=== PATIENT | male | born 1975 | race Caucasian/White ===

== ENCOUNTER 2017-05-21 15:56 | Emergency (ER) | payer BC ==
--- NOTE | 2017-05-21 16:38 | EDM.PDOC ---
ED HPI GENERAL MEDICAL PROBLEM - General Chief Complaint: Abdominal Pain Stated Complaint: GAL BLADDER PAIN?? [phone] Time Seen by Provider: 05/21/17 16:38 Source of Information: Reports: Patient, RN, RN Notes Reviewed History Limitations: Reports: No Limitations - History of Present Illness INITIAL COMMENTS - FREE TEXT/NARRATIVE: Patient complains of onset of right upper abdominal pain after noon today. Patient last ate at about 8 a.m. and had a breakfast pizza and states that when lunch time approached he had no appetite and felt nauseated. Denies any vomiting or fever. He has had similar pain in the past but never this severe and never lasted this long. Denies any radiating pain. Denies any diarrhea, constipation or urinary symptoms. Onset: Today Location: Reports: Abdomen Quality: Reports: Ache Severity: Moderate Improves with: Reports: None Worsens with: Reports: None Associated Symptoms: Reports: No Other Symptoms Abdomen Pain Score (Numeric/FACES): 6 - Related Data Allergies Allergy/AdvReac Type Severity Reaction Status Date / Time cephalexin monohydrate Allergy Blurred Verified 05/21/17 16:26 [From Keflex] [facility] Meds: Home Meds Omeprazole [Prilosec] 20 mg PO DAILY 07/30/14 [History] Ibuprofen 800 mg PO ASDIRECTED PRN 08/07/14 [History] Aspirin 81 mg PO DAILY 05/01/15 [History] Metoprolol Succinate [Toprol XL] 75 mg PO DAILY 10/19/16 [History] Past Medical History Cardiovascular History: Reports: Hypertension, Other (See Below) Other Cardiovascular History: dilated cardiomyopathy Respiratory History: Reports: Sleep Apnea, SOB Gastrointestinal History: Reports: GERD Genitourinary History: Reports: Renal Calculus Other Genitourinary History: kidney stones Musculoskeletal History: Reports: Fracture (clavicle) Other Musculoskeletal History: fx clavicle Neurological History: Reports: None Psychiatric History: Reports: None Endocrine/Metabolic History: Reports: Obesity/BMI 30+ Hematologic History: Reports: None Immunologic History: Reports: None Oncologic (Cancer) History: Reports: None Dermatologic History: Reports: None - Infectious Disease History Infectious Disease History: Reports: None - Past Surgical History HEENT Surgical History: Reports: Adenoidectomy, Tonsillectomy Social & Family History - Family History Cardiac: Reports: CAD, High Cholesterol, Hypertension - Tobacco Use Smoking Status *Q: Former Smoker Years of Tobacco use: 15 Second Hand Smoke Exposure: No - Caffeine Use Caffeine Use: Reports: Coffee, Soda - Recreational Drug Use Recreational Drug Use: No - Living Situation & Occupation Living situation: Reports: , with Family Occupation: Employed ED ROS GENERAL - Review of Systems Review Of Systems: ROS reveals no pertinent complaints other than HPI. ED EXAM, GI/ABD - Physical Exam Exam: See Below Exam Limited By: No Limitations General Appearance: Alert, WD/WN, No Apparent Distress, Obese (morbidly) Eyes: Bilateral: Normal Appearance, EOMI Ears: Normal External Exam, Normal Canal, Hearing Grossly Normal, Normal TMs Nose: Normal Inspection, Normal Mucosa, No Blood Throat/Mouth: Normal Inspection, Normal Lips, Normal Teeth, Normal Gums, Normal Oropharynx, Normal Voice, No Airway Compromise Head: Atraumatic, Normocephalic Neck: Normal Inspection, Supple, Non-Tender, Full Range of Motion Respiratory/Chest: No Respiratory Distress, Lungs Clear, Normal Breath Sounds, No Accessory Muscle Use, Chest Non-Tender Cardiovascular: Normal Peripheral Pulses, Regular Rate, Rhythm, No Edema, No Gallop, No JVD, No Murmur, No Rub GI/Abdominal Exam: Other (severely obese abdomen limits quality of exam. Tender to palpation in RUQ and epigastric abdomen.) (Male) Exam: Deferred Rectal (Males) Exam: Deferred Back Exam: Normal Inspection Extremities: Normal Inspection, Normal Range of Motion, Non-Tender, Normal Capillary Refill, No Pedal Edema Neurological: Alert, Oriented, CN II-XII Intact, Normal Cognition, Normal Gait, Normal Reflexes, No Motor/Sensory Deficits Psychiatric: Normal Affect, Normal Mood Skin Exam: Warm, Dry, Intact, Normal Color, No Rash Course - Vital Signs Last Recorded V/S: Last Vital Signs Temp 36.6 C 05/21/17 16:29 Pulse 89 05/21/17 16:29 Resp 14 05/21/17 16:43 BP 116/66 05/21/17 16:43 Pulse Ox 97 05/21/17 16:43 - Orders/Labs/Meds Orders: Active Orders 24 hr Category Date Time Status Peripheral IV Care [RC] . DIRECTED Care 05/21/17 16:42 Active Abdomen Pelvis w Cont [CT] Urgent Exams 05/21/17 17:19 Taken UA W/MICROSCOPIC [URIN] Stat Lab 05/21/17 16:42 Uncollected Sodium Chloride 0.9% [Saline Flush] Med 05/21/17 16:42 Active 10 ml FLUSH ASDIRECTED PRN Peripheral IV Insertion Adult [OM.PC] Stat Oth 05/21/17 16:42 Ordered Medication Orders Sodium Chloride (Saline Flush) 10 ml FLUSH ASDIRECTED PRN PRN Reason: Keep Vein Open Labs: Laboratory Tests 05/21/17 05/21/17 05/21/17 Range/Units 16:51 16:51 16:51 WBC 10.9 H (5.0-10.0) 10^3/uL RBC 5.03 (4.6-6.2) 10^6/uL Hgb 14.1 (14.0-18.0) g/dL Hct 42.1 (40.0-54.0) % MCV 83.7 (80-100) fL MCH 28.0 (27.0-34.0) pg MCHC 33.5 (33.0-35.0) g/dL Plt Count 312 (150-450) 10^3/uL Neut % (Auto) 70.6 (42.2-75.2) % Lymph % (Auto) 19.4 L (20.5-50.1) % [place] % (Auto) 7.5 (2-8) % Eos % (Auto) 2.1 (1.0-3.0) % Baso % (Auto) 0.4 (0.0-1.0) % Sodium 141 (135-145) mmol/L Potassium 3.9 (3.6-5.0) mmol/L Chloride 108 (101-111) mmol/L Carbon Dioxide 24.0 (21.0-31.0) mmol/L Anion Gap 12.9 BUN 16 (7-18) mg/dL Creatinine 0.9 (0.6-1.3) mg/dL Est Cr Clr Drug Dosing 76.39 mL/min Estimated GFR (MDRD) > 60 BUN/Creatinine Ratio 17.77 Glucose 100 (74-105) mg/dL Lactic Acid 0.8 (0.5-2.2) mmol/L Calcium 9.3 (8.4-10.2) mg/dl Total Bilirubin 0.5 (0.2-1.0) mg/dL AST 21 (10-42) IU/L ALT 25 (10-60) IU/L Alkaline Phosphatase 88 (42-121) IU/L Total Protein 7.0 (6.7-8.2) g/dl Albumin 3.7 (3.2-5.5) g/dl Globulin 3.3 Albumin/Globulin Ratio 1.12 Amylase 36 (28-100) U/L Lipase 30 (22-51) U/L Meds: Medications Generic Name Dose Route Start Last Admin Trade Name Freq PRN Reason Stop Dose Admin Sodium Chloride 10 ml 05/21/17 16:42 Saline Flush FLUSH ASDIRECTED PRN Keep Vein Open Discontinued Medications Generic Name Dose Route Start Last Admin Trade Name Freq PRN Reason Stop Dose Admin Hydromorphone HCl 1 mg 05/21/17 16:42 05/21/17 17:12 Dilaudid IVPUSH 05/21/17 16:43 1 mg ONETIME ONE Administration Sodium Chloride 1,000 mls @ 999 mls/hr 05/21/17 16:42 05/21/17 17:12 Normal Saline IV 05/21/17 17:42 999 mls/hr .BOLUS ONE Administration Iopamidol 75 ml 05/21/17 17:19 05/21/17 17:25 Isovue-300 (61%) IVPUSH 05/21/17 17:20 75 ml ONETIME ONE Administration Iopamidol 50 ml 05/21/17 17:19 05/21/17 17:25 Isovue-300 (61%) IVPUSH 05/21/17 17:20 50 ml ONETIME ONE Administration Ondansetron HCl 4 mg 05/21/17 16:42 05/21/17 17:12 Zofran IV 05/21/17 16:43 4 mg ONETIME ONE Administration - Radiology Interpretation Free Text/Narrative:: Abdomen and pelvis CT: No sign of acute intra-abdominal pathology. Non-acute findings. See rad report. Departure - Departure Time of Disposition: 18:25 Disposition: Home, Self-Care 01 Condition: Good Clinical Impression: Abdominal pain Qualifiers: Abdominal location: right upper quadrant Qualified Code(s): R10.11 - Right upper quadrant pain Gastritis Qualifiers: Gastritis type: unspecified gastritis Chronicity: acute Gastritis bleeding: without bleeding Qualified Code(s): K29.00 - Acute gastritis without bleeding - Discharge Information Instructions: Abdominal Pain, Adult, [id number], Viral Gastroenteritis, Adult , [id number] Forms: ED Department Discharge Additional Instructions: Increase Omeprazole one tablet to twice daily for the next 3 to 5 days. Do bland low fat diet. Follow up in clinic if not improving in the next 2 to 3 days. Return to ER if worse at any time. - My Orders Last 24 Hours: My Active Orders 05/21/17 16:42 Peripheral IV Care [RC] . DIRECTED UA W/MICROSCOPIC [URIN] Stat Sodium Chloride 0.9% [Saline Flush] 10 ml FLUSH ASDIRECTED PRN Peripheral IV Insertion Adult [OM.PC] Stat 05/21/17 17:19 Abdomen Pelvis w Cont [CT] Urgent - Assessment/Plan Last 24 Hours: My Active Orders 05/21/17 16:42 Peripheral IV Care [RC] . DIRECTED UA W/MICROSCOPIC [URIN] Stat Sodium Chloride 0.9% [Saline Flush] 10 ml FLUSH ASDIRECTED PRN Peripheral IV Insertion Adult [OM.PC] Stat 05/21/17 17:19 Abdomen Pelvis w Cont [CT] Urgent
[2017-05-21] MEDS ORDERED: Sodium Chloride 0.9% 10 ML Syringe FLUSH PRN (16:42)
[2017-05-21] MEDS ORDERED: HYDROmorphone 1 MG/ML Syringe IVPUSH ONE (16:42)
[2017-05-21] MEDS ORDERED: Sodium Chloride 0.9% 1,000 ML IV ONE (16:42)
[2017-05-21] MEDS ORDERED: Ondansetron 4 MG/2 ML SDV IV ONE (16:42)
[2017-05-21 17:13] LABS: CHLORIDE,CL 108 mmol/L (101-111); SODIUM,NA 141 mmol/L (135-145)
[2017-05-21] MEDS ORDERED: Iopamidol 612 MG/ML 50 ML SDV IVPUSH ONE (17:19)
[2017-05-21] MEDS ORDERED: Iopamidol 612 MG/ML 75 ML Bottle IVPUSH ONE (17:19)
[2017-05-21] MEDS ORDERED: GI Cocktail Oral Solution 30 ML PO ONE (18:25)
[2017-05-21 18:31] VITALS: BP 136/76
== END 2017-05-21 18:33 | disposition home or self-care (01) ==
LOC: DL.ED 15:56
DX: K29.00 Acute gastritis without bleeding (principal); I10 Essential (primary) hypertension; I42.0 Dilated cardiomyopathy; K21.9 Gastro-esophageal reflux disease without esophagitis; E66.9 Obesity, unspecified; Z98.890 Other specified postprocedural states; Z87.890 Personal history of sex reassignment; Z79.82 Long term (current) use of aspirin; Z79.899 Other long term (current) drug therapy; Z88.1 Allergy status to other antibiotic agents
CPT/HCPCS: 36415; 74177; 80053; 82150; 83605; 83690; 85025; 96361; 96374; 96375; 99284; A9270; J1170; J2405; J7030; Q9967

== ENCOUNTER 2017-06-02 15:37 | Emergency (ER) | payer BC ==
[2017-06-02] MEDS ORDERED: Ondansetron 4 MG/2 ML SDV IV ONE (16:26)
[2017-06-02] MEDS ORDERED: Sodium Chloride 0.9% 1,000 ML IV ONE (16:26)
[2017-06-02] MEDS ORDERED: HYDROmorphone 1 MG/ML Syringe IVPUSH ONE (16:26)
--- NOTE | 2017-06-02 16:37 | EDM.PDOC ---
<Mehul Stack M - Last Filed: 06/02/17 19:26> ED HPI GENERAL MEDICAL PROBLEM - General Chief Complaint: Abdominal Pain Stated Complaint: SEVERE ABD PAINS, [id number] Time Seen by Provider: 06/02/17 16:15 Source of Information: Reports: Patient History Limitations: Reports: No Limitations - History of Present Illness INITIAL COMMENTS - FREE TEXT/NARRATIVE: This 41 yo male patient reports to the ED with increased right sided abdominal pain. The patient reports he was seen in the ED 12 days ago for similar symptoms. The patient reports he followed-up with Dr. Peters on Wednesday and was started on an antibiotic. The patient reports no improvement in his symptoms in the past 3 days. The patient reports his pain has gotten worse this afternoon. The patient reports he ate 2 taco's today with no changes to his symptoms. Onset Date: 05/21/17 Duration: Constant, Getting Worse Location: Reports: Abdomen (right sided) Quality: Reports: Ache, Sharp Severity: Severe Improves with: Reports: None Worsens with: Reports: None Associated Symptoms: Reports: No Other Symptoms Right Middle Abdomen Pain Score (Numeric/FACES): 10 - Related Data Allergies Allergy/AdvReac Type Severity Reaction Status Date / Time cephalexin monohydrate Allergy Blurred Verified 05/21/17 16:26 [From Keflex] [facility] Meds: Home Meds Omeprazole [Prilosec] 20 mg PO DAILY 07/30/14 [History] Ibuprofen 800 mg PO ASDIRECTED PRN 08/07/14 [History] Aspirin 81 mg PO DAILY 05/01/15 [History] Metoprolol Succinate [Toprol XL] 75 mg PO DAILY 10/19/16 [History] Past Medical History Cardiovascular History: Reports: Hypertension, Other (See Below) Other Cardiovascular History: dilated cardiomyopathy Respiratory History: Reports: Sleep Apnea, SOB Gastrointestinal History: Reports: GERD Genitourinary History: Reports: Renal Calculus Other Genitourinary History: kidney stones Musculoskeletal History: Reports: Fracture Other Musculoskeletal History: fx clavicle Neurological History: Reports: None Psychiatric History: Reports: None Endocrine/Metabolic History: Reports: Obesity/BMI 30+ Hematologic History: Reports: None Immunologic History: Reports: None Oncologic (Cancer) History: Reports: None Dermatologic History: Reports: None - Infectious Disease History Infectious Disease History: Reports: None - Past Surgical History HEENT Surgical History: Reports: Adenoidectomy, Tonsillectomy Social & Family History - Family History Family Medical History: Noncontributory Cardiac: Reports: CAD, High Cholesterol, Hypertension - Tobacco Use Smoking Status *Q: Former Smoker Years of Tobacco use: 15 Used Tobacco, but Quit: Yes Month Tobacco Last Used: 0 Second Hand Smoke Exposure: No - Caffeine Use Caffeine Use: Reports: Coffee, Soda - Recreational Drug Use Recreational Drug Use: No - Living Situation & Occupation Living situation: Reports: , with Family Occupation: Employed ED ROS GENERAL - Review of Systems Review Of Systems: ROS reveals no pertinent complaints other than HPI. ED EXAM, GI/ABD - Physical Exam Exam: See Below Exam Limited By: No Limitations General Appearance: Alert, WD/WN, Moderate Distress, Obese (morbid) Eyes: Bilateral: Normal Appearance, EOMI Ears: Normal External Exam, Normal Canal, Hearing Grossly Normal, Normal TMs Nose: Normal Inspection, Normal Mucosa, No Blood Throat/Mouth: Normal Inspection, Normal Lips, Normal Teeth, Normal Gums, Normal Oropharynx, Normal Voice, No Airway Compromise Head: Atraumatic, Normocephalic Neck: Normal Inspection, Supple, Non-Tender, Full Range of Motion Respiratory/Chest: No Respiratory Distress, Lungs Clear, Normal Breath Sounds, No Accessory Muscle Use, Chest Non-Tender Cardiovascular: Normal Peripheral Pulses, Regular Rate, Rhythm, No Edema, No Gallop, No JVD, No Murmur, No Rub GI/Abdominal Exam: Normal Bowel Sounds, No Organomegaly, No Abnormal Bruit, No Mass, Pelvis Stable, Guarding, Rebound, Tender (right sided) (Male) Exam: Deferred Rectal (Males) Exam: Deferred Back Exam: Normal Inspection, Full Range of Motion, NT Extremities: Normal Inspection, Normal Range of Motion, Non-Tender, Normal Capillary Refill, No Pedal Edema Neurological: Alert, Oriented, CN II-XII Intact, Normal Cognition, Normal Gait, Normal Reflexes, No Motor/Sensory Deficits Psychiatric: Normal Affect, Normal Mood Skin Exam: Warm, Dry, Intact, Normal Color, No Rash Lymphatic: No Adenopathy Course - Vital Signs Last Recorded V/S: Last Vital Signs Temp 96.7 F 06/02/17 19:54 Pulse 82 06/02/17 19:54 Resp 18 06/02/17 19:54 BP 129/76 06/02/17 19:54 Pulse Ox 95 06/02/17 19:54 - Orders/Labs/Meds Labs: Laboratory Tests 06/02/17 06/02/17 06/02/17 Range/Units 16:32 16:32 16:32 WBC 10.8 H (5.0-10.0) 10^3/uL RBC 5.10 (4.6-6.2) 10^6/uL Hgb 14.3 (14.0-18.0) g/dL Hct 42.7 (40.0-54.0) % MCV 83.7 (80-100) fL MCH 28.0 (27.0-34.0) pg MCHC 33.5 (33.0-35.0) g/dL Plt Count 313 (150-450) 10^3/uL Neut % (Auto) 70.7 (42.2-75.2) % Lymph % (Auto) 17.1 L (20.5-50.1) % [place] % (Auto) 9.2 H (2-8) % Eos % (Auto) 2.4 (1.0-3.0) % Baso % (Auto) 0.6 (0.0-1.0) % Sodium 142 (135-145) mmol/L Potassium 4.2 (3.6-5.0) mmol/L Chloride 109 (101-111) mmol/L Carbon Dioxide 23.0 (21.0-31.0) mmol/L Anion Gap 14.2 BUN 19 H (7-18) mg/dL Creatinine 1.1 (0.6-1.3) mg/dL Est Cr Clr Drug Dosing 76.88 mL/min Estimated GFR (MDRD) > 60 BUN/Creatinine Ratio 17.27 Glucose 109 H (74-105) mg/dL Calcium 9.4 (8.4-10.2) mg/dl Total Bilirubin 0.4 (0.2-1.0) mg/dL AST 28 (10-42) IU/L ALT 34 (10-60) IU/L Alkaline Phosphatase 79 (42-121) IU/L Total Protein 7.1 (6.7-8.2) g/dl Albumin 3.7 (3.2-5.5) g/dl Globulin 3.4 Albumin/Globulin Ratio 1.09 Amylase 39 (28-100) U/L Lipase 29 (22-51) U/L Urine Color (YELLOW) Urine Appearance (CLEAR) Urine pH (5.0-9.0) Ur Specific [place] (1.005-1.030) Urine Protein (NEGATIVE) Urine Glucose (UA) (NEGATIVE) Urine Ketones (NEGATIVE) Urine Occult Blood (NEGATIVE) Urine Nitrite (NEGATIVE) Urine Bilirubin (NEGATIVE) Urine Urobilinogen (0.2-1.0) mg/dL Ur Leukocyte Esterase (NEGATIVE) Urine RBC /HPF Urine WBC (0-5/HPF) /HPF Ur Epithelial Cells /HPF Urine Bacteria (0-FEW/HPF) /HPF Urine Mucus /LPF 06/02/17 Range/Units 17:09 WBC (5.0-10.0) 10^3/uL RBC (4.6-6.2) 10^6/uL Hgb (14.0-18.0) g/dL Hct (40.0-54.0) % MCV (80-100) fL MCH (27.0-34.0) pg MCHC (33.0-35.0) g/dL Plt Count (150-450) 10^3/uL Neut % (Auto) (42.2-75.2) % Lymph % (Auto) (20.5-50.1) % [place] % (Auto) (2-8) % Eos % (Auto) (1.0-3.0) % Baso % (Auto) (0.0-1.0) % Sodium (135-145) mmol/L Potassium (3.6-5.0) mmol/L Chloride (101-111) mmol/L Carbon Dioxide (21.0-31.0) mmol/L Anion Gap BUN (7-18) mg/dL Creatinine (0.6-1.3) mg/dL Est Cr Clr Drug Dosing mL/min Estimated GFR (MDRD) BUN/Creatinine Ratio Glucose (74-105) mg/dL Calcium (8.4-10.2) mg/dl Total Bilirubin (0.2-1.0) mg/dL AST (10-42) IU/L ALT (10-60) IU/L Alkaline Phosphatase (42-121) IU/L Total Protein (6.7-8.2) g/dl Albumin (3.2-5.5) g/dl Globulin Albumin/Globulin Ratio Amylase (28-100) U/L Lipase (22-51) U/L Urine Color Yellow (YELLOW) Urine Appearance Clear (CLEAR) Urine pH 5.5 (5.0-9.0) Ur Specific [place] 1.020 (1.005-1.030) Urine Protein Negative (NEGATIVE) Urine Glucose (UA) Negative (NEGATIVE) Urine Ketones Negative (NEGATIVE) Urine Occult Blood Negative (NEGATIVE) Urine Nitrite Negative (NEGATIVE) Urine Bilirubin Negative (NEGATIVE) Urine Urobilinogen 0.2 (0.2-1.0) mg/dL Ur Leukocyte Esterase Negative (NEGATIVE) Urine RBC 0-5 /HPF Urine WBC 0-5 (0-5/HPF) /HPF Ur Epithelial Cells Rare /HPF Urine Bacteria Occasional (0-FEW/HPF) /HPF Urine Mucus Few H /LPF Meds: Medications Discontinued Medications Generic Name Dose Route Start Last Admin Trade Name Freq PRN Reason Stop Dose Admin Hydromorphone HCl 1 mg 06/02/17 16:26 06/02/17 16:54 Dilaudid IVPUSH 06/02/17 16:27 1 mg ONETIME ONE Administration Sodium Chloride 1,000 mls @ 999 mls/hr 06/02/17 16:26 06/02/17 16:53 Normal Saline IV 06/02/17 17:26 999 mls/hr .BOLUS ONE Administration Iopamidol 100 ml 06/02/17 17:29 06/02/17 17:50 Isovue-300 (61%) IVPUSH 06/02/17 17:30 100 ml ONETIME ONE Administration Ondansetron HCl 4 mg 06/02/17 16:26 06/02/17 16:53 Zofran IV 06/02/17 16:27 4 mg ONETIME ONE Administration Oxycodone/Acetaminophen 1 tab 06/02/17 19:40 06/02/17 19:51 Percocet 325-5 Mg PO 06/02/17 19:41 1 tab ONETIME ONE Administration Departure - Departure Disposition: Home, Self-Care 01 Clinical Impression: Abdominal pain, Hiatal hernia - Discharge Information Referrals: Tyron Peters MD [Primary Care Provider] - Forms: ED Department Discharge Additional Instructions: Continue home medications light low acid diet Percocet 1 every 6 hours as needed for severe pain follow up with primary care urgent follow up if recurrent vomiting, or fever <Abigail Mart - Last Filed: 06/03/17 04:18> Course - Radiology Interpretation Free Text/Narrative:: CT Abdomen with contrast, unremarkable with exception of small hiatal hernia - Re-Assessments/Exams Free Text/Narrative Re-Assessment/Exam: 06/03/17 04:16 Abdominal pain still present, crampy, sharp less than on presentation. Informed negative findings on CT. Discharge instructions to patient. Departure - Departure Time of Disposition: 19:42 Condition: Fair
[2017-06-02 17:10] LABS: CHLORIDE,CL 109 mmol/L (101-111); SODIUM,NA 142 mmol/L (135-145)
[2017-06-02] MEDS ORDERED: Iopamidol 612 MG/ML 100 ML Bottle IVPUSH ONE (17:29)
[2017-06-02] MEDS ORDERED: Acetaminophen/oxyCODONE 325-5 MG Tab PO ONE ×2 (19:40→19:47)
[2017-06-02 19:55] VITALS: BP 129/76
== END 2017-06-02 19:58 | disposition home or self-care (01) ==
LOC: DL.ED 15:37
DX: K44.9 Diaphragmatic hernia without obstruction or gangrene (principal); I10 Essential (primary) hypertension; K21.9 Gastro-esophageal reflux disease without esophagitis; E66.9 Obesity, unspecified; Z90.49 Acquired absence of other specified parts of digestive tract; Z98.890 Other specified postprocedural states; Z88.1 Allergy status to other antibiotic agents; Z79.899 Other long term (current) drug therapy; Z79.82 Long term (current) use of aspirin; Z87.891 Personal history of nicotine dependence
CPT/HCPCS: 36415; 74177; 80053; 81001; 82150; 83690; 85025; 96361; 96374; 96375; 99284; A9270; J1170; J2405; J7030; Q9967

== ENCOUNTER 2017-12-06 08:52 | Emergency (ER) | payer BC ==
[2017-12-06 09:01] VITALS: BP 143/84
[2017-12-06] MEDS ORDERED: Ondansetron 4 MG/2 ML SDV IV ONE (09:40)
[2017-12-06 09:45] LABS: ANION GAP 11.3; CHLORIDE,CL 102 mmol/L (101-111); SODIUM,NA 136 mmol/L (135-145)
--- NOTE | 2017-12-06 09:46 | EDM.PDOC ---
ED HPI GENERAL MEDICAL PROBLEM - General Chief Complaint: Abdominal Pain Stated Complaint: ABD PAIN Time Seen by Provider: 12/06/17 09:35 Source of Information: Reports: Patient History Limitations: Reports: No Limitations - History of Present Illness INITIAL COMMENTS - FREE TEXT/NARRATIVE: This 42 yo male patient reports to the ED with mid epigastric abdominal pain with nausea. The patient reports his symptoms started this morning. The patient reports he had pork chops, sweet potatoes and beans for dinner last night, but has not had anything this morning. The patient rates his pain at a 5/10 at this time. The patient reports that this pain is different than previous episodes. Onset: Today Duration: Hour(s):, Constant Location: Reports: Abdomen Quality: Reports: Ache, Sharp Severity: Moderate Improves with: Reports: None Worsens with: Reports: None Associated Symptoms: Reports: Nausea/Vomiting Middle Abdomen Pain Score (Numeric/FACES): 5 - Related Data Allergies Allergy/AdvReac Type Severity Reaction Status Date / Time cephalexin monohydrate Allergy Blurred Verified 12/06/17 08:56 [From Keflex] Vision Home Meds: Home Meds Omeprazole [Prilosec] 20 mg PO DAILY 07/30/14 [History] Ibuprofen 800 mg PO ASDIRECTED PRN 08/07/14 [History] Aspirin 81 mg PO DAILY 05/01/15 [History] Metoprolol Succinate [Toprol XL] 75 mg PO DAILY 10/19/16 [History] Past Medical History HEENT History: Reports: Impaired Vision Cardiovascular History: Reports: Hypertension, Other (See Below) Other Cardiovascular History: dilated cardiomyopathy Respiratory History: Reports: Sleep Apnea, SOB Gastrointestinal History: Reports: GERD Genitourinary History: Reports: Renal Calculus Other Genitourinary History: kidney stones Musculoskeletal History: Reports: Fracture Other Musculoskeletal History: fx clavicle Neurological History: Reports: None Psychiatric History: Reports: None Endocrine/Metabolic History: Reports: Obesity/BMI 30+ Hematologic History: Reports: None Immunologic History: Reports: None Oncologic (Cancer) History: Reports: None Dermatologic History: Reports: None - Infectious Disease History Infectious Disease History: Reports: None - Past Surgical History HEENT Surgical History: Reports: Adenoidectomy, Tonsillectomy Social & Family History - Family History Family Medical History: Noncontributory Cardiac: Reports: CAD, High Cholesterol, Hypertension - Tobacco Use Smoking Status *Q: Never Smoker Years of Tobacco use: 15 Used Tobacco, but Quit: Yes Month Tobacco Last Used: 0 Second Hand Smoke Exposure: No - Caffeine Use Caffeine Use: Reports: Soda - Recreational Drug Use Recreational Drug Use: No - Living Situation & Occupation Living situation: Reports: , with Family Occupation: Employed ED ROS GENERAL - Review of Systems Review Of Systems: ROS reveals no pertinent complaints other than HPI. ED EXAM, GI/ABD - Physical Exam Exam: See Below Exam Limited By: No Limitations General Appearance: Alert, WD/WN, Mild Distress, Obese Eyes: Bilateral: Normal Appearance, EOMI Ears: Normal External Exam, Normal Canal, Hearing Grossly Normal, Normal TMs Nose: Normal Inspection, Normal Mucosa, No Blood Throat/Mouth: Normal Inspection, Normal Lips, Normal Teeth, Normal Gums, Normal Oropharynx, Normal Voice, No Airway Compromise Head: Atraumatic, Normocephalic Neck: Normal Inspection, Supple, Non-Tender, Full Range of Motion Respiratory/Chest: No Respiratory Distress, Lungs Clear, Normal Breath Sounds, No Accessory Muscle Use, Chest Non-Tender Cardiovascular: Normal Peripheral Pulses, Regular Rate, Rhythm, No Edema, No Gallop, No JVD, No Murmur, No Rub GI/Abdominal Exam: Normal Bowel Sounds, Soft, No Organomegaly, No Distention, No Abnormal Bruit, No Mass, Pelvis Stable, Tender (epigastric tenderness ( middle upper abdominal pain with palpation)) (Male) Exam: Deferred Rectal (Males) Exam: Deferred Back Exam: Normal Inspection, Full Range of Motion, NT Extremities: Normal Inspection, Normal Range of Motion, Non-Tender, Normal Capillary Refill, No Pedal Edema Neurological: Alert, Oriented, CN II-XII Intact, Normal Cognition, Normal Gait, Normal Reflexes, No Motor/Sensory Deficits Psychiatric: Normal Affect, Normal Mood Skin Exam: Warm, Dry, Intact, Normal Color, No Rash Lymphatic: No Adenopathy Course - Vital Signs Last Recorded V/S: Last Vital Signs Temp 36.2 C 12/06/17 08:57 Pulse 80 12/06/17 08:57 Resp 18 12/06/17 08:57 BP 143/84 H 12/06/17 08:57 Pulse Ox 98 12/06/17 08:57 - Orders/Labs/Meds Labs: Laboratory Tests 02/12/06/17 12/06/17 Range/Units 09:18 09:19 09:19 WBC 11.5 H (5.0-10.0) 10^3/uL RBC 5.29 (4.6-6.2) 10^6/uL Hgb 15.1 (14.0-18.0) g/dL Hct 44.5 (40.0-54.0) % MCV 84.1 (80-100) fL MCH 28.5 (27.0-34.0) pg MCHC 33.9 (33.0-35.0) g/dL Plt Count 288 (150-450) 10^3/uL Neut % (Auto) 71.3 (42.2-75.2) % Lymph % (Auto) 18.4 L (20.5-50.1) % [place] % (Auto) 7.2 (2-8) % Eos % (Auto) 2.7 (1.0-3.0) % Baso % (Auto) 0.4 (0.0-1.0) % Sodium 136 (135-145) mmol/L Potassium 4.3 (3.6-5.0) mmol/L Chloride 102 (101-111) mmol/L Carbon Dioxide 27.0 (21.0-31.0) mmol/L Anion Gap 11.3 BUN 23 H (7-18) mg/dL Creatinine 1.1 (0.6-1.3) mg/dL Est Cr Clr Drug Dosing 76.10 mL/min Estimated GFR (MDRD) > 60 BUN/Creatinine Ratio 20.90 Glucose 118 H (74-105) mg/dL Calcium 9.2 (8.4-10.2) mg/dl Total Bilirubin 0.4 (0.2-1.0) mg/dL AST 17 (10-42) IU/L ALT 24 (10-60) IU/L Alkaline Phosphatase 88 (42-121) IU/L Total Protein 7.4 (6.7-8.2) g/dl Albumin 3.8 (3.2-5.5) g/dl Globulin 3.6 Albumin/Globulin Ratio 1.06 Amylase 43 (28-100) U/L Lipase 29 (22-51) U/L Urine Color Yellow (YELLOW) Urine Appearance Slightly cloudy (CLEAR) Urine pH 6.0 (5.0-9.0) Ur Specific [place] 1.020 (1.005-1.030) Urine Protein Trace H (NEGATIVE) Urine Glucose (UA) Negative (NEGATIVE) Urine Ketones Negative (NEGATIVE) Urine Occult Blood Negative (NEGATIVE) Urine Nitrite Negative (NEGATIVE) Urine Bilirubin Negative (NEGATIVE) Urine Urobilinogen 0.2 (0.2-1.0) mg/dL Ur Leukocyte Esterase Negative (NEGATIVE) Urine RBC 0-5 /HPF Urine WBC 0-5 (0-5/HPF) /HPF Ur Epithelial Cells Rare /HPF Amorphous Sediment Rare (0/HPF) /HPF Urine Bacteria Rare (0-FEW/HPF) /HPF Urine Mucus Few H /LPF Urine Other Meds: Medications Discontinued Medications Generic Name Dose Route Start Last Admin Trade Name Freq PRN Reason Stop Dose Admin Ondansetron HCl 4 mg 12/06/17 09:40 12/06/17 10:01 Zofran IV 12/06/17 09:41 4 mg ONETIME ONE Administration Departure - Departure Time of Disposition: 11:23 Disposition: Home, Self-Care 01 Condition: Fair Clinical Impression: Abdominal pain Qualifiers: Abdominal location: upper abdomen, unspecified Qualified Code(s): R10.10 - Upper abdominal pain, unspecified Cholelithiases Qualifiers: Cholelithiasis location: gallbladder Cholecystitis presence: without cholecystitis Biliary obstruction: without biliary obstruction Qualified Code(s) : K80.20 - Calculus of gallbladder without cholecystitis without obstruction - Discharge Information Instructions: Cholelithiasis, Disv-it-[place] Forms: ED Department Discharge Care Plan Goals: The patient was advised of the examination, lab and CT results during the visit. The patient was given an IV dose of Zofran for nausea and an oral dose of [place] for pain. The patient was encouraged to follow-up with his primary care facility for continued evaluation (gallbladder ultrasound) and management. The patient was encouraged to stick to a low fat diet. If the patient has any additional symptoms or concerns, the patient should visit his primary care facility or return to the emergency department.
--- NOTE | 2017-12-06 11:17 | CT ---
CLINICAL HISTORY: 42-year-old obese male with persistent midepigastric pain who was reported to have "negative" CT scan abdomen/pelvis (abnormal spine) on 15 October 2017. Reevaluate please this hypert ensive patient with a history of "kidney stones". SCAN TECHNIQUE: Volume acquisition of data from an emergency unenhanced CT scan of the abdomen and pe lvis obtained with the patient lying supine on the Siemens multislice CT scanner [place], [place]. All data archived in the PACS system for storage, reformatting axial/sag ittal/coronal planes and study. INTERPRETATION: 1. Gallbladder normal size, anatomic configuration and location with uniformly thin wall but inhomoge neous density suggesting probable cholelithiasis. (Ultrasound confirmation recommended). 2. Unenhanced liver, stomach, spleen, pancreas and adrenal glands unremarkable. Diverticula scattered transverse and sigmoid colon. 3. Normal reniform size, axis, and configuration. No sign of renal cortical mass lesion, nephrolithia sis or obstructive uropathy. 4. Multilevel lower thoracic disc disease with arthritic changes (marginal spondylosis) of the spine. No fracture or dislocation. 5. Normal caliber aorta. Normal heart. Lung bases clear. Normal appendix RLQ. 6. No sign of abdominal or pelvic mass lesion, inflammatory "dirty" peritoneal fat, mechanical bowel obstruction, ascites or free air. 7. No ventral wall or inguinal/femoral hernias. CONCLUSION: Pancolonic diverticulosis. Probable cholelithiasis (see above). No sign of acute intraperitoneal inflammation, mechanical bowel obstruction or other abnormality.
[2017-12-06] MEDS ORDERED: Acetaminophen/HYDROcodone 325-10 MG Tab PO ONE (11:24)
== END 2017-12-06 11:39 | disposition home or self-care (01) ==
LOC: DL.ED 08:52
DX: K80.20 Calculus of gallbladder without cholecystitis without obstruction (principal); I10 Essential (primary) hypertension; Z88.1 Allergy status to other antibiotic agents; Z79.899 Other long term (current) drug therapy; Z87.891 Personal history of nicotine dependence
CPT/HCPCS: 36415; 74176; 80053; 81001; 82150; 83690; 85025; 96374; 99284; A9270; J2405

== ENCOUNTER 2018-01-27 06:49 | Emergency (ER) | payer BC ==
[2018-01-27 07:00] VITALS: BP 126/77
[2018-01-27] MEDS ORDERED: Sodium Chloride 0.9% 10 ML Syringe FLUSH PRN (07:08)
--- NOTE | 2018-01-27 07:08 | EDM.PDOC ---
"ED HPI GENERAL MEDICAL PROBLEM - General Chief Complaint: Abdominal Pain Stated Complaint: LOWER RT ABD Time Seen by Provider: 01/27/18 07:08 Source of Information: Reports: Patient, RN, RN Notes Reviewed History Limitations: Reports: No Limitations - History of Present Illness INITIAL COMMENTS - FREE TEXT/NARRATIVE: Arrives from home by POV with c/o being woke from sleep at approx. 5AM with RLQ abdominal pain and nausea. Denies fever, chills, diarrhea, constipation, abdominal distention, or urinary Sx's. Pt describes the pain as a constant sharp ache that does not radiate. Pt states he had a lap. isreal. one month ago and has recovered well. He last ate at 1830HRS last evening. Onset: Today Onset Date: 01/27/18 Onset Time: 05:00 Duration: Constant Location: Reports: Abdomen Quality: Reports: Ache, Sharp Severity: Severe Improves with: Reports: None Worsens with: Reports: None Associated Symptoms: Reports: No Other Symptoms Right Lower Abdomen Pain Score (Numeric/FACES): 10 - Related Data Allergies Allergy/AdvReac Type Severity Reaction Status Date / Time cephalexin monohydrate Allergy Blurred Verified 01/27/18 06:58 [From Keflex] Vision Home Meds: Home Meds Omeprazole [Prilosec] 20 mg PO DAILY 07/30/14 [History] Ibuprofen 800 mg PO ASDIRECTED PRN 08/07/14 [History] Aspirin 81 mg PO DAILY 05/01/15 [History] Metoprolol Succinate [Toprol XL] 75 mg PO DAILY 10/19/16 [History] Past Medical History HEENT History: Reports: Impaired Vision Cardiovascular History: Reports: Hypertension, Other (See Below) Other Cardiovascular History: dilated cardiomyopathy Respiratory History: Reports: Sleep Apnea, SOB Gastrointestinal History: Reports: Cholelithiasis, GERD Genitourinary History: Reports: Renal Calculus Other Genitourinary History: kidney stones Musculoskeletal History: Reports: Fracture Other Musculoskeletal History: fx clavicle Neurological History: Reports: None Psychiatric History: Reports: None Endocrine/Metabolic History: Reports: Obesity/BMI 30+ Hematologic History: Reports: None Immunologic History: Reports: None Oncologic (Cancer) History: Reports: None Dermatologic History: Reports: None - Infectious Disease History Infectious Disease History: Reports: None - Past Surgical History HEENT Surgical History: Reports: Adenoidectomy, Tonsillectomy GI Surgical History: Reports: Cholecystectomy Social & Family History - Family History Family Medical History: Noncontributory Cardiac: Reports: CAD, High Cholesterol, Hypertension - Tobacco Use Smoking Status *Q: Unknown Ever Smoked Years of Tobacco use: 15 Used Tobacco, but Quit: Yes Month/Year Tobacco Last Used: 0 Second Hand Smoke Exposure: No - Caffeine Use Caffeine Use: Reports: None - Recreational Drug Use Recreational Drug Use: No - Living Situation & Occupation Living situation: Reports: , with Family Occupation: Employed ED ROS GENERAL - Review of Systems Review Of Systems: ROS reveals no pertinent complaints other than HPI. ED EXAM, GI/ABD - Physical Exam Exam: See Below Exam Limited By: No Limitations General Appearance: Alert, WD/WN, No Apparent Distress, Obese, Other ( uncomfortable but non-toxic appearing) Eyes: Bilateral: Normal Appearance (no scleral icterus) Nose: Normal Inspection Throat/Mouth: Normal Inspection, Normal Lips, Normal Teeth, Normal Gums, Normal Oropharynx, Normal Voice, No Airway Compromise Head: Atraumatic, Normocephalic Neck: Normal Inspection, Supple, Non-Tender, Full Range of Motion Respiratory/Chest: No Respiratory Distress, Lungs Clear, Normal Breath Sounds, No Accessory Muscle Use, Chest Non-Tender Cardiovascular: Regular Rate, Rhythm GI/Abdominal Exam: Normal Bowel Sounds, Soft, No Distention, Tender (RLQ without rebound tenderness or peritoneal signs). No: Guarding, Rigid, Rebound (Male) Exam: Deferred Rectal (Males) Exam: Deferred Back Exam: Normal Inspection Extremities: Normal Inspection, Non-Tender Neurological: Alert, Oriented, CN II-XII Intact, Normal Cognition, Normal Gait, No Motor/Sensory Deficits Psychiatric: Normal Affect, Normal Mood Skin Exam: Warm, Dry, Intact, Normal Color, No Rash Course - Vital Signs Last Recorded V/S: Last Vital Signs Temp 36.3 C 01/27/18 06:59 Pulse 76 01/27/18 06:59 Resp 21 H 01/27/18 06:59 BP 126/77 01/27/18 06:59 Pulse Ox 98 01/27/18 06:59 - Orders/Labs/Meds Orders: Active Orders 24 hr Category Date Time Status Peripheral IV Care [RC] . DIRECTED Care 01/27/18 07:09 Active Abdomen Pelvis w wo Cont [CT] Stat Exams 01/27/18 07:19 Taken UA W/MICROSCOPIC [URIN] Stat Lab 01/27/18 09:20 Ordered Sodium Chloride 0.9% [Saline Flush] Med 01/27/18 07:08 Active 10 ml FLUSH ASDIRECTED PRN Peripheral IV Insertion Adult [OM.PC] Stat Oth 01/27/18 07:08 Ordered Medication Orders Sodium Chloride (Saline Flush) 10 ml FLUSH ASDIRECTED PRN PRN Reason: Keep Vein Open Last Admin: 01/27/18 08:45 Dose: 10 ml Labs: Laboratory Tests 01/27/18 01/27/18 01/27/18 Range/Units 07:13 07:13 09:20 WBC 11.4 H (5.0-10.0) 10^3/uL RBC 5.16 (4.6-6.2) 10^6/uL Hgb 14.5 (14.0-18.0) g/dL Hct 43.5 (40.0-54.0) % MCV 84.3 (80-100) fL MCH 28.1 (27.0-34.0) pg MCHC 33.3 (33.0-35.0) g/dL Plt Count 291 (150-450) 10^3/uL Neut % (Auto) 72.4 (42.2-75.2) % Lymph % (Auto) 16.5 L (20.5-50.1) % [place] % (Auto) 8.2 H (2-8) % Eos % (Auto) 2.5 (1.0-3.0) % Baso % (Auto) 0.4 (0.0-1.0) % Sodium 136 (135-145) mmol/L Potassium 4.1 (3.6-5.0) mmol/L Chloride 105 (101-111) mmol/L Carbon Dioxide 26.0 (21.0-31.0) mmol/L Anion Gap 9.1 BUN 17 (7-18) mg/dL Creatinine 1.0 (0.6-1.3) mg/dL Est Cr Clr Drug Dosing 86.84 mL/min Estimated GFR (MDRD) > 60 BUN/Creatinine Ratio 17.00 Glucose 115 H (74-105) mg/dL Calcium 8.9 (8.4-10.2) mg/dl Total Bilirubin 0.6 (0.2-1.0) mg/dL AST 17 (10-42) IU/L ALT 25 (10-60) IU/L Alkaline Phosphatase 79 (42-121) IU/L Total Protein 6.7 (6.7-8.2) g/dl Albumin 3.6 (3.2-5.5) g/dl Globulin 3.1 Albumin/Globulin Ratio 1.16 Amylase 37 (28-100) U/L Lipase 29 (22-51) U/L Urine Color Yellow (YELLOW) Urine Appearance Clear (CLEAR) Urine pH 6.0 (5.0-9.0) Ur Specific [place] 1.010 (1.005-1.030) Urine Protein Negative (NEGATIVE) Urine Glucose (UA) Negative (NEGATIVE) Urine Ketones Negative (NEGATIVE) Urine Occult Blood Negative (NEGATIVE) Urine Nitrite Negative (NEGATIVE) Urine Bilirubin Negative (NEGATIVE) Urine Urobilinogen 0.2 (0.2-1.0) mg/dL Ur Leukocyte Esterase Negative (NEGATIVE) Urine RBC Not seen /HPF Urine WBC 0-5 (0-5/HPF) /HPF Ur Epithelial Cells Rare /HPF Urine Bacteria Not seen (0-FEW/HPF) /HPF Urine Mucus Not seen /LPF Meds: Medications Generic Name Dose Route Start Last Admin Trade Name Freq PRN Reason Stop Dose Admin Sodium Chloride 10 ml 01/27/18 07:08 01/27/18 08:45 Saline Flush FLUSH 10 ml ASDIRECTED PRN Administration Keep Vein Open Discontinued Medications Generic Name Dose Route Start Last Admin Trade Name Freq PRN Reason Stop Dose Admin Fentanyl 50 mcg 01/27/18 07:18 01/27/18 07:27 Sublimaze IVPUSH 01/27/18 07:19 50 mcg ONETIME ONE Administration Fentanyl 50 mcg 01/27/18 08:37 01/27/18 08:44 Sublimaze IVPUSH 01/27/18 08:38 50 mcg ONETIME ONE Administration Sodium Chloride 1,000 mls @ 999 mls/hr 01/27/18 07:18 01/27/18 07:25 Normal Saline IV 01/27/18 08:18 999 mls/hr .BOLUS ONE Administration Iopamidol 50 ml 01/27/18 07:19 01/27/18 07:47 Isovue-300 (61%) IVPUSH 01/27/18 07:20 50 ml ONETIME ONE Administration Iopamidol 75 ml 01/27/18 07:19 01/27/18 07:47 Isovue-300 (61%) IVPUSH 01/27/18 07:20 75 ml ONETIME ONE Administration Ondansetron HCl 4 mg 01/27/18 07:18 01/27/18 07:26 Zofran IV 01/27/18 07:19 4 mg ONETIME ONE Administration Ondansetron HCl 4 mg 01/27/18 08:37 01/27/18 08:42 Zofran IV 01/27/18 08:38 4 mg ONETIME ONE Administration - Radiology Interpretation Free Text/Narrative:: Name: ROLDAN HERNÁNDEZ Age: 42Years M Date: 01/27/2018 SSN: -- : [id number] Study: CT ABDOMEN/PELVIS WO &/OR W ONE OR BOTH RGNS Requesting Physician: Arley Lyles Images: [id number] Addl Studies: Provided Clinical History: Contrast: Both Contrast Medium: ISOVUE 300 Contrast Amount: 125 mL Contrast Method: RF Page 1 of 2 EXAM: CT Abdomen and Pelvis Without and With Intravenous Contrast CLINICAL HISTORY: 42 years old, male; Pain and abnormal findings; Abnormal lab test; Elevated wbc ; Abdominal pain; Localized; Right lower quadrant (rlq); Prior surgery; Surgery date: 1-6 months; Surgery type: Cholecystectomy; Patient HX: Prev HX of kidney stones TECHNIQUE: Axial computed tomography images of the abdomen and pelvis without and with intravenous contrast. All CT scans at this facility use one or more dose reduction techniques, viz.: automated exposure control; ma/kV adjustment per patient size (including targeted exams where dose is matched to indication; i.e. head); or iterative reconstruction technique. Coronal and sagittal reformatted images were created and reviewed. CONTRAST: 125 mL of ISOVUE 300 administered intravenously. COMPARISON: CT - Abdomen Pelvis wo Cont 2017-12-06 10:18 FINDINGS: Lung bases: Unremarkable. No mass. No consolidation. Mediastinum: Small hiatal hernia. ABDOMEN: Liver: Unremarkable. No mass. Gallbladder and bile ducts: Interval cholecystectomy. No ductal dilation. Pancreas: Unremarkable. No mass. No ductal dilation. Spleen: Unremarkable. No splenomegaly. ROLDAN HERNÁNDEZ | Final Radiology Report CONFIDENTIALITY STATEMENT This report is intended only for use by the referring physician, and only in accordance with law. If you received this in error, call [phone]. Page 2 of 2 Adrenals: Unremarkable. No mass. Kidneys and ureters: Unremarkable. No solid mass. No obstructing stones. No hydronephrosis. Stomach and bowel: Colonic diverticulosis. No obstruction. No mucosal thickening. Appendix: A normal appendix is identified. PELVIS: Bladder: Unremarkable. No mass. No stones. Reproductive: Unremarkable as visualized. ABDOMEN and PELVIS: Intraperitoneal space: Unremarkable. No free air. No significant fluid collection. Bones/joints: Mild multilevel degenerative changes of the lower thoracic spine. Minimal lumbar scoliosis. No acute fracture. No dislocation. Soft tissues: Unremarkable. Vasculature: Unremarkable. No abdominal aortic aneurysm. Lymph nodes: Unremarkable. No enlarged lymph nodes. IMPRESSION: No acute findings. Thank you for allowing us to participate in the care of your patient. Dictated and Authenticated by: Ruy Keith MD 01/27/2018 8:00 AM Central Time ([place] & [place]) CT Results Date: 01/27/18 Departure - Departure Time of Disposition: 09:39 Disposition: Home, Self-Care 01 Condition: Good Clinical Impression: Abdominal pain Qualifiers: Abdominal location: right lower quadrant Qualified Code(s): R10.31 - Right lower quadrant pain - Discharge Information Instructions: Abdominal Pain, Adult Referrals: Tyron Peters MD [Primary Care Provider] - Forms: ED Department Discharge Additional Instructions: Rx: Zofran 4mg Rx: Bentyl (Dicyclomine) 20mg *Do not drive or work while under the influence of this medication. Liquid and soft bland diet today until nausea and abdominal pain resolves. Follow up with your surgeon or primary doctor if the pain does not completely resolve in 24 hours. Return to ER if worse at any time, or if any new or concerning symptoms develop. - My Orders Last 24 Hours: My Active Orders 01/27/18 07:08 Sodium Chloride 0.9% [Saline Flush] 10 ml FLUSH ASDIRECTED PRN Peripheral IV Insertion Adult [OM.PC] Stat 01/27/18 07:09 Peripheral IV Care [RC] . DIRECTED 01/27/18 07:19 Abdomen Pelvis w wo Cont [CT] Stat 01/27/18 09:20 UA W/MICROSCOPIC [URIN] Stat - Assessment/Plan Last 24 Hours: My Active Orders 01/27/18 07:08 Sodium Chloride 0.9% [Saline Flush] 10 ml FLUSH ASDIRECTED PRN Peripheral IV Insertion Adult [OM.PC] Stat 01/27/18 07:09 Peripheral IV Care [RC] . DIRECTED 01/27/18 07:19 Abdomen Pelvis w wo Cont [CT] Stat 01/27/18 09:20 UA W/MICROSCOPIC [URIN] Stat"
[2018-01-27] MEDS ORDERED: Sodium Chloride 0.9% 1,000 ML IV ONE (07:18)
[2018-01-27] MEDS ORDERED: fentaNYL 100 MCG/2 ML SDV IVPUSH ONE ×2 (07:18→08:37)
[2018-01-27] MEDS ORDERED: Ondansetron 4 MG/2 ML SDV IV ONE ×2 (07:18→08:37)
[2018-01-27] MEDS ORDERED: Iopamidol 612 MG/ML 75 ML Bottle IVPUSH ONE (07:19)
[2018-01-27] MEDS ORDERED: Iopamidol 612 MG/ML 50 ML SDV IVPUSH ONE (07:19)
[2018-01-27 07:40] LABS: CHLORIDE,CL 105 mmol/L (101-111); SODIUM,NA 136 mmol/L (135-145)
== END 2018-01-27 09:53 | disposition home or self-care (01) ==
LOC: DL.ED 06:49
DX: R10.31 Right lower quadrant pain (principal); E66.9 Obesity, unspecified; I10 Essential (primary) hypertension; Z88.1 Allergy status to other antibiotic agents; Z79.899 Other long term (current) drug therapy; Z79.82 Long term (current) use of aspirin; Z87.891 Personal history of nicotine dependence
CPT/HCPCS: 36415; 74178; 80053; 81001; 82150; 83690; 85025; 96361; 96374; 96375; 96376; 99284; J2405; J3010; J7030; J7050; Q9967

== ENCOUNTER 2018-11-04 15:54 | Emergency (ER) | payer BC ==
[2018-11-04 16:10] VITALS: BP 121/80
[2018-11-04 17:39] LABS: ANION GAP 13.6; CHLORIDE,CL 104 mmol/L (101-111); SODIUM,NA 139 mmol/L (135-145)
--- NOTE | 2018-11-04 18:14 | EDM.PDOC ---
Scribed by Yuly Finley 11/04/18 0261 for Pattie Petersen NP ED HPI GENERAL MEDICAL PROBLEM - General Chief Complaint: Respiratory Problem Stated Complaint: CHEST TIGHTNESS Time Seen by Provider: 11/04/18 16:16 Source of Information: Reports: Patient, RN, RN Notes Reviewed History Limitations: Reports: No Limitations - History of Present Illness INITIAL COMMENTS - FREE TEXT/NARRATIVE: Patient presents to ER with sore throat, stuffy nose, cough with green sputum, chest pains, shortness of breath, nausea, vomiting and diarrhea which began 1 week ago. He has had no fever or chills. Onset: Gradual Duration: Getting Worse Location: Reports: Chest, Other (throat and nose) Quality: Reports: Ache Severity: Moderate Improves with: Reports: None Worsens with: Reports: None Associated Symptoms: Reports: No Other Symptoms Mid-Sternal Pain Score (Numeric/FACES): 10 - Related Data Allergies Allergy/AdvReac Type Severity Reaction Status Date / Time cephalexin monohydrate Allergy Blurred Verified 09/15/18 15:28 [From Keflex] Vision Home Meds: Home Meds Omeprazole [Prilosec] 20 mg PO DAILY 07/30/14 [History] Ibuprofen 800 mg PO ASDIRECTED PRN 08/07/14 [History] Aspirin 81 mg PO DAILY 05/01/15 [History] Metoprolol Succinate [Toprol XL] 75 mg PO DAILY 10/19/16 [History] Past Medical History HEENT History: Reports: Impaired Vision Cardiovascular History: Reports: Hypertension, Other (See Below) Other Cardiovascular History: dilated cardiomyopathy Respiratory History: Reports: Sleep Apnea, SOB Gastrointestinal History: Reports: Cholelithiasis, Diverticulosis, GERD Genitourinary History: Reports: Renal Calculus Other Genitourinary History: kidney stones Musculoskeletal History: Reports: Fracture Other Musculoskeletal History: fx clavicle Neurological History: Reports: None Psychiatric History: Reports: None Endocrine/Metabolic History: Reports: Obesity/BMI 30+ Hematologic History: Reports: None Immunologic History: Reports: None Oncologic (Cancer) History: Reports: None Dermatologic History: Reports: None - Infectious Disease History Infectious Disease History: Reports: None - Past Surgical History HEENT Surgical History: Reports: Adenoidectomy, Tonsillectomy GI Surgical History: Reports: Cholecystectomy Social & Family History - Family History Family Medical History: Noncontributory Cardiac: Reports: CAD, High Cholesterol, Hypertension - Tobacco Use Smoking Status *Q: Former Smoker Used Tobacco, but Quit: Yes Month/Year Tobacco Last Used: 10/18/2003 Second Hand Smoke Exposure: No - Caffeine Use Caffeine Use: Reports: Soda - Recreational Drug Use Recreational Drug Use: No - Living Situation & Occupation Living situation: Reports: , with Family Occupation: Employed ED ROS GENERAL - Review of Systems Review Of Systems: ROS reveals no pertinent complaints other than HPI. ED EXAM, GENERAL - Physical Exam Exam: See Below Exam Limited By: No Limitations General Appearance: Obese Eye Exam: Bilateral Eye: EOMI, Normal Inspection, PERRL Ears: Normal External Exam, Normal Canal, Hearing Grossly Normal, Normal TMs Nose: Normal Inspection, Normal Mucosa, No Blood Throat/Mouth: Normal Inspection, Normal Lips, Normal Teeth, Normal Gums, Normal Oropharynx, Normal Voice, No Airway Compromise Head: Atraumatic, Normocephalic Neck: Normal Inspection, Supple, Non-Tender, Full Range of Motion Respiratory/Chest: Crackles, Rhonchi Cardiovascular: Normal Peripheral Pulses, Regular Rate, Rhythm, No Edema, No Gallop, No JVD, No Murmur, No Rub GI/Abdominal: Normal Bowel Sounds, Soft, Non-Tender, No Organomegaly, No Distention, No Abnormal Bruit, No Mass (Male) Exam: Deferred Rectal (Males) Exam: Deferred Back Exam: Normal Inspection, Full Range of Motion, NT Extremities: Normal Inspection, Normal Range of Motion, Non-Tender, Normal Capillary Refill, No Pedal Edema Neurological: Alert, Oriented, CN II-XII Intact, Normal Cognition, Normal Gait, Normal Reflexes, No Motor/Sensory Deficits Psychiatric: Normal Affect, Normal Mood Skin Exam: Warm, Dry, Intact, Normal Color, No Rash EKG INTERPRETATION EKG Date: 11/04/18 Time: 15:59 Rhythm: Other (sinus tachycardia) Rate (Beats/Min): 102 [place]: Normal P-Wave: Present QRS: LBBB ST-T: Normal QT: Normal Course - Vital Signs Last Recorded V/S: Last Vital Signs Temp 96.5 F 11/04/18 16:09 Pulse 130 H 11/04/18 16:09 Resp 24 H 11/04/18 16:09 BP 121/80 01/18/19 16:09 Pulse Ox 99 11/04/18 16:09 - Orders/Labs/Meds Orders: Active Orders 24 hr Category Date Time Status EKG Documentation Completion [RC] STAT Care 11/04/18 16:53 Active Chest 2V [CR] Urgent Exams 11/04/18 16:53 Taken CULTURE STREP A CONFIRMATION [RM] Stat Lab 11/04/18 17:02 Results STREP SCRN A RAPID W CULT CONF [RM] Stat Lab 11/04/18 17:02 Results Labs: Laboratory Tests 11/04/18 11/04/18 11/04/18 Range/Units 17:04 17:04 17:04 WBC 11.1 H (5.0-10.0) 10^3/uL RBC 5.11 (4.6-6.2) 10^6/uL Hgb 14.6 (14.0-18.0) g/dL Hct 42.9 (40.0-54.0) % MCV 84.0 (80-100) fL MCH 28.6 (27.0-34.0) pg MCHC 34.0 (33.0-35.0) g/dL Plt Count 300 (150-450) 10^3/uL Neut % (Auto) 68.6 (42.2-75.2) % Lymph % (Auto) 19.1 L (20.5-50.1) % [place] % (Auto) 8.7 H (2-8) % Eos % (Auto) 3.2 H (1.0-3.0) % Baso % (Auto) 0.4 (0.0-1.0) % PT 9.3 (9.0-12.0) SEC INR 0.9 (0.9-1.2) D-Dimer, Quantitative < 100 (0-400) ng/mL Sodium 139 (135-145) mmol/L Potassium 3.6 (3.6-5.0) mmol/L Chloride 104 (101-111) mmol/L Carbon Dioxide 25.0 (21.0-31.0) mmol/L Anion Gap 13.6 BUN 15 (7-18) mg/dL Creatinine 1.0 (0.6-1.3) mg/dL Est Cr Clr Drug Dosing 82.85 mL/min Estimated GFR (MDRD) > 60 BUN/Creatinine Ratio 15.00 Glucose 89 (74-105) mg/dL Calcium 8.8 (8.4-10.2) mg/dl Total Bilirubin 0.5 (0.2-1.0) mg/dL AST 19 (10-42) IU/L ALT 22 (10-60) IU/L Alkaline Phosphatase 91 (42-121) IU/L Troponin I < 0.02 (0.00-0.02) ng/ml Total Protein 6.9 (6.7-8.2) g/dl Albumin 3.4 (3.2-5.5) g/dl Globulin 3.5 Albumin/Globulin Ratio 0.97 Rapid strep: Negative. Influenza A: Negative. Influenza B: Negative. - Radiology Interpretation Free Text/Narrative:: Chest x-ray: No acute findings. No change. See rad report. Departure - Departure Time of Disposition: 18:03 Disposition: Home, Self-Care 01 Condition: Fair Clinical Impression: Bronchitis - Discharge Information *PRESCRIPTION DRUG MONITORING PROGRAM REVIEWED*: No *COPY OF PRESCRIPTION DRUG MONITORING REPORT IN PATIENT CHACHA: No Instructions: Acute Bronchitis, Adult, [id number], Upper Respiratory Infection, Adult, [id number] Forms: ED Department Discharge Additional Instructions: RX: Prednisone, Albuterol inhaler May use Tylenol and/or Ibuprofen as directed for fever/pain Follow up with your primary care facility - My Orders Last 24 Hours: My Active Orders 11/04/18 16:53 EKG Documentation Completion [RC] STAT Chest 2V [CR] Urgent 11/04/18 17:02 CULTURE STREP A CONFIRMATION [RM] Stat STREP SCRN A RAPID W CULT CONF [RM] Stat - Assessment/Plan Last 24 Hours: My Active Orders 11/04/18 16:53 EKG Documentation Completion [RC] STAT Chest 2V [CR] Urgent 11/04/18 17:02 CULTURE STREP A CONFIRMATION [RM] Stat STREP SCRN A RAPID W CULT CONF [RM] Stat I have read and agree with the documentation that has been completed regarding this visit. By signing this record, I attest that the documentation was completed in my physical presence and is an accurate record of the encounter.
== END 2018-11-04 18:20 | disposition home or self-care (01) ==
LOC: DL.ED 15:54
DX: J40 Bronchitis, not specified as acute or chronic (principal); I10 Essential (primary) hypertension; Z79.82 Long term (current) use of aspirin; Z79.899 Other long term (current) drug therapy; Z88.1 Allergy status to other antibiotic agents
CPT/HCPCS: 36415; 71046; 80053; 84484; 85025; 85379; 85610; 87081; 87430; 87804; 93005; 99283

== ENCOUNTER 2019-06-09 22:08 | Emergency (ER) | payer BC ==
[2019-06-09] MEDS ORDERED: Clindamycin Phosphate 900 MG in Sodium Chloride 0.9% 100 ML IV ONE (22:37)
[2019-06-09 22:38] VITALS: BP 120/81
--- NOTE | 2019-06-09 22:39 | EDM.PDOC ---
ED HPI GENERAL MEDICAL PROBLEM - General Chief Complaint: Skin Complaint Stated Complaint: BLEEDING Time Seen by Provider: 06/09/19 22:37 Source of Information: Reports: Patient History Limitations: Reports: No Limitations - History of Present Illness INITIAL COMMENTS - FREE TEXT/NARRATIVE: onset yesterday. Lower Abdominal Pain Score (Numeric/FACES): 4 - Related Data Allergies Allergy/AdvReac Type Severity Reaction Status Date / Time cephalexin monohydrate Allergy Blurred Verified 06/09/19 22:34 [From Keflex] [facility] Home Meds: Home Meds Omeprazole [Prilosec] 20 mg PO DAILY 07/30/14 [History] Ibuprofen 800 mg PO ASDIRECTED PRN 08/07/14 [History] Metoprolol Succinate [Toprol XL] 75 mg PO DAILY 10/19/16 [History] Past Medical History HEENT History: Reports: Impaired Vision Cardiovascular History: Reports: Hypertension, Other (See Below) Other Cardiovascular History: dilated cardiomyopathy Respiratory History: Reports: Sleep Apnea, SOB Gastrointestinal History: Reports: Cholelithiasis, Diverticulosis, GERD Genitourinary History: Reports: Renal Calculus Other Genitourinary History: kidney stones Musculoskeletal History: Reports: Fracture Other Musculoskeletal History: fx clavicle Neurological History: Reports: None Psychiatric History: Reports: None Endocrine/Metabolic History: Reports: Obesity/BMI 30+ Hematologic History: Reports: None Immunologic History: Reports: None Oncologic (Cancer) History: Reports: None Dermatologic History: Reports: None - Infectious Disease History Infectious Disease History: Reports: None - Past Surgical History HEENT Surgical History: Reports: Adenoidectomy, Tonsillectomy GI Surgical History: Reports: Cholecystectomy Social & Family History - Family History Family Medical History: Noncontributory Cardiac: Reports: CAD, High Cholesterol, Hypertension - Caffeine Use Caffeine Use: Reports: Coffee, Soda - Living Situation & Occupation Living situation: Reports: , with Family Occupation: Employed ED ROS GENERAL - Review of Systems Review Of Systems: ROS reveals no pertinent complaints other than HPI. ED EXAM, SKIN/RASH Exam: See Below Exam Limited By: No Limitations General Appearance: Alert, WD/WN, Mild Distress, Other (discomfort) Ears: Hearing Grossly Normal Throat/Mouth: Normal Voice, No Airway Compromise Head: Atraumatic Neck: Non-Tender, Full Range of Motion Respiratory/Chest: No Respiratory Distress Cardiovascular: Regular Rate, Rhythm GI/Abdominal: Soft, Non-Tender Neurological: Alert, Oriented, Normal Cognition, Normal Gait, No Motor/Sensory Deficits Psychiatric: Normal Affect, Normal Mood Skin: Warm, Dry, Normal Color Location, Skin: Abdomen Characteristics: Other (cellulitis) Associated features: Warmth, Tenderness, Swelling, Inflammation. No: Lymphangitis Course - Vital Signs Last Recorded V/S: Last Vital Signs Temp 36.9 C 06/09/19 22:36 Pulse 112 H 06/09/19 22:36 Resp 18 06/09/19 22:36 BP 120/81 06/09/19 22:36 Pulse Ox 96 06/09/19 22:36 - Orders/Labs/Meds Labs: Laboratory Tests 06/09/19 06/09/19 06/09/19 Range/Units 22:45 22:45 22:45 WBC 5.8 (5.0-10.0) 10^3/uL RBC 5.20 (4.6-6.2) 10^6/uL Hgb 14.9 (14.0-18.0) g/dL Hct 44.2 (40.0-54.0) % MCV 85.0 (80-100) fL MCH 28.7 (27.0-34.0) pg MCHC 33.7 (33.0-35.0) g/dL Plt Count 262 (150-450) 10^3/uL Neut % (Auto) 55.8 (42.2-75.2) % Lymph % (Auto) 25.4 (20.5-50.1) % [place] % (Auto) 14.3 H (2-8) % Eos % (Auto) 4.0 H (1.0-3.0) % Baso % (Auto) 0.5 (0.0-1.0) % Sodium 139 (135-145) mmol/L Potassium 3.7 (3.6-5.0) mmol/L Chloride 105 (101-111) mmol/L Carbon Dioxide 25.0 (21.0-31.0) mmol/L Anion Gap 12.7 BUN 14 (7-18) mg/dL Creatinine 1.0 (0.6-1.3) mg/dL Est Cr Clr Drug Dosing 85.95 mL/min Estimated GFR (MDRD) > 60 BUN/Creatinine Ratio 14.00 Glucose 147 H (74-105) mg/dL Lactic Acid 1.0 (0.5-2.2) mmol/L Calcium 8.6 (8.4-10.2) mg/dl Total Bilirubin 0.4 (0.2-1.0) mg/dL AST 26 (10-42) IU/L ALT 32 (10-60) IU/L Alkaline Phosphatase 85 (42-121) IU/L Total Protein 6.6 L (6.7-8.2) g/dl Albumin 3.6 (3.2-5.5) g/dl Globulin 3.0 Albumin/Globulin Ratio 1.20 Meds: Medications Discontinued Medications Generic Name Dose Route Start Last Admin Trade Name Freq PRN Reason Stop Dose Admin Clindamycin Phosphate 900 mg/ 106 mls @ 200 mls/hr 06/09/19 22:37 06/09/19 23 :04 Sodium Chloride IV 06/09/19 23:08 200 mls/hr ONETIME ONE Administration - Re-Assessments/Exams Free Text/Narrative Re-Assessment/Exam: 06/09/19 23:15 results discussed with pt Departure - Departure Time of Disposition: 23:35 Disposition: Home, Self-Care 01 Condition: Good Clinical Impression: Cellulitis Qualifiers: Site of cellulitis: trunk Site of cellulitis of trunk: abdominal wall Qualified Code(s): L03.311 - Cellulitis of abdominal wall - Discharge Information Instructions: Cellulitis, Adult, [id number] Referrals: PCP,None [Ordering Only Provider] - Forms: ED Department Discharge Additional Instructions: 1) recheck if there is any change or concern rx givne; clindamycin 300mg qid x 40
[2019-06-09 23:10] LABS: ANION GAP 12.7; CHLORIDE,CL 105 mmol/L (101-111); SODIUM,NA 139 mmol/L (135-145)
== END 2019-06-09 23:39 | disposition home or self-care (01) ==
LOC: DL.ED 22:08
DX: L03.311 Cellulitis of abdominal wall (principal); I10 Essential (primary) hypertension; K21.9 Gastro-esophageal reflux disease without esophagitis; Z90.49 Acquired absence of other specified parts of digestive tract; Z79.899 Other long term (current) drug therapy; Z88.1 Allergy status to other antibiotic agents
CPT/HCPCS: 36415; 80053; 83605; 85025; 96365; 99283; J3490; J7050

== ENCOUNTER 2019-06-11 03:13 | Inpatient (IN) | payer BC ==
[2019-06-11] MEDS ORDERED: Clindamycin Phosphate 900 MG in Sodium Chloride 0.9% 100 ML IV ONE (03:27)
--- NOTE | 2019-06-11 03:27 | EDM.PDOC ---
ED HPI GENERAL MEDICAL PROBLEM - General Chief Complaint: Skin Complaint Stated Complaint: CELLULITIS FEELS WORSE TODAY Time Seen by Provider: 06/11/19 03:24 Source of Information: Reports: Patient History Limitations: Reports: No Limitations - History of Present Illness INITIAL COMMENTS - FREE TEXT/NARRATIVE: was here last night for same cellulitis. given IV ABX with PO not getting better feels worse tonight. Left Leg Pain Score (Numeric/FACES): 3 Headache Pain Score (Numeric/FACES): 10 - Related Data Allergies Allergy/AdvReac Type Severity Reaction Status Date / Time cephalexin monohydrate Allergy Blurred Verified 06/09/19 22:34 [From Keflex] [facility] Home Meds: Home Meds Omeprazole [Prilosec] 20 mg PO DAILY 07/30/14 [History] Ibuprofen 800 mg PO ASDIRECTED PRN 08/07/14 [History] Metoprolol Succinate [Toprol XL] 75 mg PO DAILY 10/19/16 [History] Past Medical History HEENT History: Reports: Impaired Vision Cardiovascular History: Reports: Hypertension, Other (See Below) Other Cardiovascular History: dilated cardiomyopathy Respiratory History: Reports: Sleep Apnea, SOB Gastrointestinal History: Reports: Cholelithiasis, Diverticulosis, GERD Genitourinary History: Reports: Renal Calculus Other Genitourinary History: kidney stones Musculoskeletal History: Reports: Fracture Other Musculoskeletal History: fx clavicle Neurological History: Reports: None Psychiatric History: Reports: None Endocrine/Metabolic History: Reports: Obesity/BMI 30+ Hematologic History: Reports: None Immunologic History: Reports: None Oncologic (Cancer) History: Reports: None Dermatologic History: Reports: None - Infectious Disease History Infectious Disease History: Reports: None - Past Surgical History HEENT Surgical History: Reports: Adenoidectomy, Tonsillectomy GI Surgical History: Reports: Cholecystectomy Social & Family History - Family History Family Medical History: Noncontributory Cardiac: Reports: CAD, High Cholesterol, Hypertension - Caffeine Use Caffeine Use: Reports: Coffee, Soda - Living Situation & Occupation Living situation: Reports: , with Family Occupation: Employed ED ROS GENERAL - Review of Systems Review Of Systems: ROS reveals no pertinent complaints other than HPI. ED EXAM, SKIN/RASH Exam: See Below Exam Limited By: No Limitations General Appearance: Alert, WD/WN, Mild Distress, Other (discomfort) Ears: Hearing Grossly Normal Throat/Mouth: Normal Voice, No Airway Compromise Head: Atraumatic Neck: Non-Tender, Full Range of Motion Respiratory/Chest: No Respiratory Distress Cardiovascular: Regular Rate, Rhythm GI/Abdominal: Other (cellulits lower abd region) Extremities: Other (bilateral calf area cellulitis ) Neurological: Alert, Oriented, Normal Cognition, Normal Gait, No Motor/Sensory Deficits Psychiatric: Flat Affect Skin: Warm, Dry, Normal Color Location, Skin: Abdomen, Lower Extremity, Left Characteristics: Erythematous Associated features: Tenderness, Swelling, Inflammation. No: Lymphangitis, Weeping Lymphatic: No Adenopathy Course - Vital Signs Last Recorded V/S: Last Vital Signs Temp 38.1 C 06/11/19 03:20 Pulse 102 H 06/11/19 03:20 Resp 24 H 06/11/19 03:20 BP 118/73 06/11/19 03:20 Pulse Ox 96 06/11/19 03:20 - Orders/Labs/Meds Orders: Active Orders 24 hr Category Date Time Status CULTURE BLOOD [BC] Stat Lab 06/11/19 03:50 Received Labs: Laboratory Tests 06/11/19 06/11/19 06/11/19 Range/Units 03:50 03:50 03:50 WBC 7.7 (5.0-10.0) 10^3/uL RBC 5.28 (4.6-6.2) 10^6/uL Hgb 15.0 (14.0-18.0) g/dL Hct 44.6 (40.0-54.0) % MCV 84.5 (80-100) fL MCH 28.4 (27.0-34.0) pg MCHC 33.6 (33.0-35.0) g/dL Plt Count 283 (150-450) 10^3/uL Neut % (Auto) 68.8 (42.2-75.2) % Lymph % (Auto) 17.3 L (20.5-50.1) % [place] % (Auto) 10.3 H (2-8) % Eos % (Auto) 3.1 H (1.0-3.0) % Baso % (Auto) 0.5 (0.0-1.0) % Sodium 136 (135-145) mmol/L Potassium 3.9 (3.6-5.0) mmol/L Chloride 106 (101-111) mmol/L Carbon Dioxide 23.0 (21.0-31.0) mmol/L Anion Gap 10.9 BUN 14 (7-18) mg/dL Creatinine 1.0 (0.6-1.3) mg/dL Est Cr Clr Drug Dosing 85.95 mL/min Estimated GFR (MDRD) > 60 BUN/Creatinine Ratio 14.00 Glucose 153 H (74-105) mg/dL Lactic Acid 1.3 (0.5-2.2) mmol/L Calcium 8.8 (8.4-10.2) mg/dl Total Bilirubin 0.4 (0.2-1.0) mg/dL AST 30 (10-42) IU/L ALT 37 (10-60) IU/L Alkaline Phosphatase 77 (42-121) IU/L Total Protein 6.6 L (6.7-8.2) g/dl Albumin 3.5 (3.2-5.5) g/dl Globulin 3.1 Albumin/Globulin Ratio 1.13 Meds: Medications Discontinued Medications Generic Name Dose Route Start Last Admin Trade Name Freq PRN Reason Stop Dose Admin Clindamycin Phosphate 900 mg/ 106 mls @ 200 mls/hr 06/11/19 03:27 06/11/19 04 :02 Sodium Chloride IV 06/11/19 03:58 200 mls/hr ONETIME ONE Administration Metoclopramide HCl 10 mg 06/11/19 04:23 06/11/19 04:31 Reglan IVPUSH 06/11/19 04:24 10 mg ONETIME ONE Administration - Re-Assessments/Exams Free Text/Narrative Re-Assessment/Exam: 06/11/19 04:[address] Low who kindly admitted pt. Departure - Departure Time of Disposition: 04:45 Disposition: Admitted As Inpatient 66 Condition: Good Clinical Impression: Abdominal wall cellulitis, Failure of outpatient treatment Cellulitis, leg Qualifiers: Laterality: unspecified laterality Qualified Code(s): L03.119 - Cellulitis of unspecified part of limb - Discharge Information Forms: ED Department Discharge - My Orders Last 24 Hours: My Active Orders 06/11/19 03:50 CULTURE BLOOD [BC] Stat - Assessment/Plan Last 24 Hours: My Active Orders 06/11/19 03:50 CULTURE BLOOD [BC] Stat
[2019-06-11 04:12] LABS: ANION GAP 10.9; CHLORIDE,CL 106 mmol/L (101-111); SODIUM,NA 136 mmol/L (135-145)
[2019-06-11] MEDS ORDERED: Metoclopramide 10 MG/2 ML SDV IVPUSH ONE (04:23)
[2019-06-11] MEDS ORDERED: Vancomycin 1.75 GM in Sodium Chloride 0.9% 500 ML IV ONE (05:03)
[2019-06-11] MEDS ORDERED: Ibuprofen 800 MG Tab PO ONE (05:24)
[2019-06-11] MEDS ORDERED: Docusate Sodium 100 MG Cap PO PRN (05:34)
[2019-06-11] MEDS ORDERED: Acetaminophen 325 MG Tab PO PRN (05:34)
[2019-06-11] MEDS ORDERED: 50% Dextrose in Water 50 ML Syringe IVPUSH PRN (05:34)
[2019-06-11] MEDS ORDERED: Glucagon,Human Recombinant 1 MG Vial IM PRN (05:34)
[2019-06-11] MEDS ORDERED: Polyethylene Glycol 3350 Powder 17 GM Packet PO PRN (05:34)
[2019-06-11] MEDS ORDERED: Ondansetron 4 MG Tab.DIS PO PRN (05:34)
[2019-06-11] MEDS ORDERED: Promethazine 25 MG Tab PO PRN (05:34)
[2019-06-11] MEDS ORDERED: Magnesium Hydroxide 400 MG/5 ML Susp 30 ML Cup PO PRN (05:34)
[2019-06-11] MEDS ORDERED: Bisacodyl 5 MG Tab PO PRN (05:34)
[2019-06-11] MEDS ORDERED: Ertapenem 1 GM in Sodium Chloride 0.9% 50 ML IV ONE (05:42)
--- NOTE | 2019-06-11 05:56 | PCM.HP ---
H&P History of Present Illness - General Date of Service: 06/11/19 Admit Problem/Dx: Admission Diagnosis/Problem Admission Diagnosis/Problem Cellulitis Source of Information: Patient, Old Records, Provider - History of Present Illness Initial Comments - Free Text/Narative: Mr. Cortez is a 43 y.o male with medical history significant for morbid obesity, HTN, BRI, impaired fasting glucose, and GERD who presented to the ED with complaints of persistent redness of the lower abdominal wall and new lesions on the back of his legs bilaterally Patient reports that abdominal wall lesion started night and progressively spread so he came to the ED Wednesday into Wednesday. He was seen in the [facility] and given IV antibiotic and sent home with oral clindamycin. He reports that he noted similar rash/redness on his calves last night and so decided to come to the ED. He reports nausea, headache, and fever last night. He denies emesis. Reports that his nausea is improved with Reglan. Had not taken any antibiotic prior to coming to the ED on Wednesday. States he had dysuria and hematuria about 2 weeks ago. Hematuria has since resolve and dysuria is mild. He denies chest pain, shortness of breath, diarrhea , constipation, melena, hematochezia, or any new symptoms Drinks one beer about once a month. Denies tobacco or illicit drug use. Left Leg Pain Score (Numeric/FACES): 3 Headache Pain Score (Numeric/FACES): 10 - Related Data Allergies/Adverse Reactions: Allergies Allergy/AdvReac Type Severity Reaction Status Date / Time cephalexin monohydrate Allergy Blurred Verified 06/11/19 05:55 [From Keflex] [facility] Home Medications: Home Meds Omeprazole [Prilosec] 20 mg PO DAILY 07/30/14 [History] Ibuprofen 800 mg PO ASDIRECTED PRN 08/07/14 [History] Metoprolol Succinate [Toprol XL] 75 mg PO DAILY 10/19/16 [History] Past Medical History HEENT History: Reports: Impaired Vision Cardiovascular History: Reports: Hypertension, Other (See Below) Other Cardiovascular History: dilated cardiomyopathy Respiratory History: Reports: Sleep Apnea, SOB Gastrointestinal History: Reports: Cholelithiasis, Diverticulosis, GERD Genitourinary History: Reports: Renal Calculus Other Genitourinary History: kidney stones Musculoskeletal History: Reports: Fracture Other Musculoskeletal History: fx clavicle Neurological History: Reports: None Psychiatric History: Reports: None Endocrine/Metabolic History: Reports: Obesity/BMI 30+ Hematologic History: Reports: None Immunologic History: Reports: None Oncologic (Cancer) History: Reports: None Dermatologic History: Reports: None - Infectious Disease History Infectious Disease History: Reports: None - Past Surgical History HEENT Surgical History: Reports: Adenoidectomy, Tonsillectomy GI Surgical History: Reports: Cholecystectomy Social & Family History - Family History Cardiac: Reports: CAD, High Cholesterol, Hypertension - Tobacco Use Smoking Status *Q: Unknown Ever Smoked - Caffeine Use Caffeine Use: Reports: Coffee, Soda - Recreational Drug Use Recreational Drug Use: No - Living Situation & Occupation Living situation: Reports: , with Family Occupation: Employed H&P Review of Systems - Review of Systems: Review Of Systems: ROS reveals no pertinent complaints other than HPI. Exam - Exam Exam: See Below - Vital Signs Vital Signs: Last Vital Signs Temp 99.0 F 06/11/19 04:20 Pulse 96 06/11/19 04:20 Resp 22 H 06/11/19 04:20 BP 125/61 06/11/19 04:20 Pulse Ox 96 06/11/19 04:20 Weight: 384 lb 9.6 oz - Exam Physical Exam Comments:: General: Alert and oriented to place, time and person; NAD Head: atraumatic and normocephalic. Eyes: PERRLA, EOMI, anicteric, Ear, Nose and Throat: No gross abnormality found Neck: Supple Respiratory/Chest: CTAB, no wheezes, crackles, rales, or rhonci; Good air entry bilaterally. No increased work of breathing CVS: RRR, no murmur, rub, or gallop, peripheral pulses palpable. Gastrointestinal/Abd: Soft, non-distended, non-tender. Normal bowel sounds. Abdominal adiposity with pannus. about 12 cm cellulitic lesion non the left lower quadrant. Skin: Abdominal wall and bilateral posterior lower leg redness and warmth. Neuro: Grossly non-focal. No cranial nerve abnormality. Moves all extremities. Psych: Alert and oriented to place time and person. No hallucinations or delusions noted. Musculoskeletal: No abnormality noted. Ext: Posterior aspect of bilateral lower legs with redness and warmth. No edema , no ulcers, no tenderness, no size differences, - Patient Data Lab Results Last 24 hrs: Laboratory Results - last 24 hr 06/11/19 06/11/19 06/11/19 Range/Units 03:50 03:50 03:50 WBC 7.7 (5.0-10.0) 10^3/uL RBC 5.28 (4.6-6.2) 10^6/uL Hgb 15.0 (14.0-18.0) g/dL Hct 44.6 (40.0-54.0) % MCV 84.5 (80-100) fL MCH 28.4 (27.0-34.0) pg MCHC 33.6 (33.0-35.0) g/dL Plt Count 283 (150-450) 10^3/uL Neut % (Auto) 68.8 (42.2-75.2) % Lymph % (Auto) 17.3 L (20.5-50.1) % [place] % (Auto) 10.3 H (2-8) % Eos % (Auto) 3.1 H (1.0-3.0) % Baso % (Auto) 0.5 (0.0-1.0) % Sodium 136 (135-145) mmol/L Potassium 3.9 (3.6-5.0) mmol/L Chloride 106 (101-111) mmol/L Carbon Dioxide 23.0 (21.0-31.0) mmol/L Anion Gap 10.9 BUN 14 (7-18) mg/dL Creatinine 1.0 (0.6-1.3) mg/dL Est Cr Clr Drug Dosing 85.95 mL/min Estimated GFR (MDRD) > 60 BUN/Creatinine Ratio 14.00 Glucose 153 H (74-105) mg/dL Lactic Acid 1.3 (0.5-2.2) mmol/L Calcium 8.8 (8.4-10.2) mg/dl Total Bilirubin 0.4 (0.2-1.0) mg/dL AST 30 (10-42) IU/L ALT 37 (10-60) IU/L Alkaline Phosphatase 77 (42-121) IU/L Total Protein 6.6 L (6.7-8.2) g/dl Albumin 3.5 (3.2-5.5) g/dl Globulin 3.1 Albumin/Globulin Ratio 1.13 Result Diagrams: 06/11/19 03:50 06/11/19 03:50 - Problem List (1) Hypertension SNOMED Code(s): 96308211 ICD Code: I10 - ESSENTIAL (PRIMARY) HYPERTENSION Status: Acute Current Visit: Yes (2) Morbid (severe) obesity due to excess calories SNOMED Code(s): 335723622, 416239196 ICD Code: E66.01 - MORBID (SEVERE) OBESITY DUE TO EXCESS CALORIES Status: Acute Current Visit: Yes (3) Abdominal wall cellulitis SNOMED Code(s): 71407664 ICD Code: L03.311 - CELLULITIS OF ABDOMINAL WALL Status: Acute Current Visit: No (4) Cellulitis, leg SNOMED Code(s): 343652744 ICD Code: L03.119 - CELLULITIS OF UNSPECIFIED PART OF LIMB Status: Acute Current Visit: No Qualifiers: Laterality: unspecified laterality Qualified Code(s): L03.119 - Cellulitis of unspecified part of limb (5) GERD (gastroesophageal reflux disease) SNOMED Code(s): 649238393 ICD Code: K21.9 - GASTRO-ESOPHAGEAL REFLUX DISEASE WITHOUT ESOPHAGITIS Status: Acute Current Visit: No Qualifiers: Esophagitis presence: esophagitis presence not specified Qualified Code(s) : K21.9 - Gastro-esophageal reflux disease without esophagitis Problem List Initiated/Reviewed/Updated: Yes Orders Last 24hrs: Active Orders 24 hr Category Date Time Status Admission Diagnosis [ADT] Stat ADT 06/11/19 05:10 Ordered Admission Status [Patient Status] [ADT] Routine ADT 06/11/19 05:07 Active Admission Status [Patient Status] [ADT] Routine ADT 06/11/19 05:10 Active Ambulate [RC] ASDIRECTED Care 06/11/19 05:34 Ordered Diabetes Education [RC] Click to Edit Care 06/11/19 05:34 Ordered Intake and Output [RC] QSHIFT Care 06/11/19 05:36 Ordered Notify Provider [RC] PRN Care 06/11/19 05:34 Ordered Oxygen Therapy [RC] PRN Care 06/11/19 05:34 Ordered Up ad Maria Victoria [RC] ASDIRECTED Care 06/11/19 05:34 Ordered VTE/DVT Education [RC] PER UNIT ROUTINE Care 06/11/19 05:34 Ordered Vital Signs [RC] Q4H Care 06/11/19 05:34 Ordered Regular Diet [DIET] Diet 06/11/19 Breakfast Ordered CBC W/O DIFF,HEMOGRAM [HEME] AM Lab 06/12/19 05:11 Ordered CULTURE BLOOD [BC] Stat Lab 06/11/19 03:50 Received Acetaminophen [Tylenol] Med 06/11/19 05:34 Ordered 650 mg PO Q6H PRN Bisacodyl [Dulcolax] Med 06/11/19 05:34 Ordered 5 mg PO DAILY PRN Dextrose 50% in Water Med 06/11/19 05:34 Ordered 25 ml IVPUSH ASDIRECTED PRN Docusate Sodium [Colace] Med 06/11/19 05:34 Ordered 100 mg PO BID PRN Docusate Sodium/Sennosides [Senna Plus] Med 06/11/19 05:34 Ordered 1 tab PO BEDTIME PRN Enoxaparin [Lovenox] Med 06/11/19 09:00 Ordered 40 mg SUBCUT DAILY Ertapenem [INVanz] 1 gm Med 06/11/19 05:42 Ordered Sodium Chloride 0.9% [Normal Saline] 50 ml IV ONETIME Glucagon,Human Recombinant [GlucaGen] Med 06/11/19 05:34 Ordered 1 mg IM ONETIME PRN Ibuprofen [Motrin] Med 06/11/19 05:34 Ordered 800 mg PO Q6H PRN Magnesium Hydroxide [Milk of Magnesia] Med 06/11/19 05:34 Ordered 30 ml PO Q12H PRN Ondansetron [Zofran ODT] Med 06/11/19 05:34 Ordered 8 mg PO Q4H PRN Polyethylene Glycol 3350 [MiraLAX] Med 06/11/19 05:34 Ordered 17 gm PO DAILY PRN Promethazine [Phenergan] Med 06/11/19 05:34 Ordered 25 mg PO Q6H PRN Vancomycin 1.75 gm Med 06/11/19 05:03 Active Sodium Chloride 0.9% [Normal Saline] 500 ml IV ONETIME Resuscitation Status Routine Resus Stat 06/11/19 05:34 Ordered Medication Orders Acetaminophen (Tylenol) 650 mg PO Q6H PRN PRN Reason: Pain (Mild 1-3)/fever Bisacodyl (Dulcolax) 5 mg PO DAILY PRN PRN Reason: Constipation Dextrose/Water (Dextrose 50% In Water) 25 ml IVPUSH ASDIRECTED PRN PRN Reason: Hypoglycemia Docusate Sodium (Colace) 100 mg PO BID PRN PRN Reason: Constipation Enoxaparin Sodium (Lovenox) 40 mg SUBCUT DAILY [place] Glucagon (Glucagen) 1 mg IM ONETIME PRN PRN Reason: Hypoglycemia Vancomycin HCl 1.75 gm/ Sodium (Chloride) 500 mls @ 334 mls/hr IV ONETIME ONE Stop: 06/11/19 06:32 Ertapenem 1 gm/ Sodium (Chloride) 50 mls @ 100 mls/hr IV ONETIME ONE Stop: 06/11/19 06:11 Ibuprofen (Motrin) 800 mg PO Q6H PRN PRN Reason: Pain Magnesium Hydroxide (Milk Of Magnesia) 30 ml PO Q12H PRN PRN Reason: Constipation Ondansetron HCl (Zofran Odt) 8 mg PO Q4H PRN PRN Reason: nausea, able to take PO Polyethylene Glycol (Miralax) 17 gm PO DAILY PRN PRN Reason: Constipation Promethazine HCl (Phenergan) 25 mg PO Q6H PRN PRN Reason: nausea, able to take PO Senna/Docusate Sodium (Senna Plus) 1 tab PO BEDTIME PRN PRN Reason: Constipation Assessment/Plan Comment:: #Sepsis due to cellulitis #Cellulitis of abdominal wall #Cellulitis of bilateral lower legs - Did not respond to Clindamycin, received one dose IV and oral - Lower leg cellulitis started after initiation of clindamycin - No abscess or drainage. - Follow up on blood cultures - Start Vancomycin and ertapenem #HTN: - Continue home medications. #Morbid obesity: - BMI of 62 - Weight loss counseling. #GERD: - Continue prilosec DVT PPx: Lovenox GI PPx: Prilosec Code status: Full
[2019-06-11] MEDS: Enoxaparin 40 MG/0.4 ML Syringe SUBCUT SCH (08:40)
[2019-06-11] MEDS: Omeprazole 20 MG Cap.CR PO SCH (08:41)
[2019-06-11] MEDS ORDERED: Metoprolol Succinate 25 MG Tab.ER PO SCH (09:00)
[2019-06-11] MEDS: Ibuprofen 800 MG Tab PO PRN (13:44)
[2019-06-11] MEDS: Meropenem Premix 1 GM in Premix Bag 1 BAG IV SCH ×2 (13:44→21:18)
[2019-06-11] MEDS: Metoprolol Succinate 25 MG Tab.ER PO SCH (21:52)
[2019-06-12] MEDS: Meropenem Premix 1 GM in Premix Bag 1 BAG IV SCH (05:23)
[2019-06-12] MEDS: Ibuprofen 800 MG Tab PO PRN ×2 (05:23→19:22)
[2019-06-12] MEDS: Omeprazole 20 MG Cap.CR PO SCH ×2 (06:02→06:10)
[2019-06-12] MEDS: Enoxaparin 40 MG/0.4 ML Syringe SUBCUT SCH (08:55)
--- NOTE | 2019-06-12 10:39 | PCM.PN ---
- General Info Date of Service: 06/12/19 Admission Dx/Problem (Free Text): Admission Diagnosis/Problem Admission Diagnosis/Problem Cellulitis Subjective Update: No acute events overnight. Reports that he is doing well. Denies fevers, chills , chest pain, shortness of breath, worsening or new redness on skin, abd pain, n /v/d/c, dysuria, hematuria, or any new symptoms. - Patient Data Vitals - Most Recent: Last Vital Signs Temp 98.4 F 06/12/19 07:22 Pulse 68 06/12/19 07:22 Resp 18 06/12/19 07:22 BP 119/67 06/12/19 07:22 Pulse Ox 96 06/12/19 07:22 Weight - Most Recent: 384 lb 9.6 oz I&O - Last 24 Hours: Intake & Output 06/11/19 06/12/19 06/12/19 22:59 06:59 14:59 Intake Total 385 922 8740 Output Total 500 500 Balance 595 410 560 Lab Results Last 24 Hours: Laboratory Results - last 24 hr 06/12/19 Range/Units 06:00 WBC 7.4 (5.0-10.0) 10^3/uL RBC 5.09 (4.6-6.2) 10^6/uL Hgb 14.4 (14.0-18.0) g/dL Hct 42.9 (40.0-54.0) % MCV 84.3 (80-100) fL MCH 28.3 (27.0-34.0) pg MCHC 33.6 (33.0-35.0) g/dL Plt Count 246 (150-450) 10^3/uL Jesse Results Last 24 Hours: Microbiology 06/11/19 03:50 Aerobic Blood Culture - Preliminary Blood NO GROWTH AFTER 1 DAY Anaerobic Blood Culture - Preliminary NO GROWTH AFTER 1 DAY Med Orders - Current: Current Medications Acetaminophen (Tylenol) 650 mg PO Q6H PRN PRN Reason: Pain (Mild 1-3)/fever Bisacodyl (Dulcolax) 5 mg PO DAILY PRN PRN Reason: Constipation Cephalexin (Keflex) 500 mg PO Q6HR [place] Stop: 06/18/19 12:01 Dextrose/Water (Dextrose 50% In Water) 25 ml IVPUSH ASDIRECTED PRN PRN Reason: Hypoglycemia Docusate Sodium (Colace) 100 mg PO BID PRN PRN Reason: Constipation Enoxaparin Sodium (Lovenox) 40 mg SUBCUT DAILY [facility] Last Admin: 06/12/19 08:55 Dose: 40 mg Glucagon (Glucagen) 1 mg IM ONETIME PRN PRN Reason: Hypoglycemia Ibuprofen (Motrin) 800 mg PO Q6H PRN PRN Reason: Pain Last Admin: 06/12/19 05:23 Dose: 800 mg Magnesium Hydroxide (Milk Of Magnesia) 30 ml PO Q12H PRN PRN Reason: Constipation Metoprolol Succinate (Toprol Xl) 75 mg PO BEDTIME [facility] Last Admin: 06/11/19 21:52 Dose: 75 mg Omeprazole (Omeprazole) 20 mg PO ACBREAKFAST [facility] Last Admin: 06/12/19 06:10 Dose: Not Given Ondansetron HCl (Zofran Odt) 8 mg PO Q4H PRN PRN Reason: nausea, able to take PO Polyethylene Glycol (Miralax) 17 gm PO DAILY PRN PRN Reason: Constipation Promethazine HCl (Phenergan) 25 mg PO Q6H PRN PRN Reason: nausea, able to take PO Senna/Docusate Sodium (Senna Plus) 1 tab PO BEDTIME PRN PRN Reason: Constipation Trimethoprim/Sulfamethoxazole (Septra Ds) 1 tab PO BID [facility] Stop: 06/18/19 10:31 Vancomycin HCl (Pharmacy To Dose - Vancomycin) 6 dose .XX ASDIRECTED [facility] Stop: 06/16/19 23:59 Discontinued Medications Clindamycin Phosphate 900 mg/ (Sodium Chloride) 106 mls @ 200 mls/hr IV ONETIME ONE Stop: 06/11/19 03:58 Last Admin: 06/11/19 04:02 Dose: 200 mls/hr Vancomycin HCl 1.75 gm/ Sodium (Chloride) 500 mls @ 334 mls/hr IV ONETIME ONE Stop: 06/11/19 06:32 Last Admin: 06/11/19 05:56 Dose: 334 mls/hr Ertapenem 1 gm/ Sodium (Chloride) 50 mls @ 100 mls/hr IV ONETIME ONE Stop: 06/11/19 06:11 Last Admin: 06/11/19 07:39 Dose: 100 mls/hr Meropenem/Sodium Chloride 1 gm (/ Premix) 50 mls @ 100 mls/hr IV Q8HR [facility] Last Infusion: 06/12/19 06:08 Dose: Infused Vancomycin HCl 1,500 mg/ (Sodium Chloride) 500 mls @ 333.333 mls/hr IV Q8H [facility] Last Infusion: 06/12/19 08:00 Dose: Infused Ibuprofen (Motrin) 800 mg PO ONETIME ONE Stop: 06/11/19 05:25 Last Admin: 06/11/19 05:37 Dose: 800 mg Metoclopramide HCl (Reglan) 10 mg IVPUSH ONETIME ONE Stop: 06/11/19 04:24 Last Admin: 06/11/19 04:31 Dose: 10 mg Metoprolol Succinate (Toprol Xl) 75 mg PO DAILY [facility] Last Admin: 06/11/19 08:41 Dose: Not Given Omeprazole (Omeprazole) 20 mg PO DAILY [facility] Last Admin: 06/12/19 06:02 Dose: 20 mg - Exam General: Alert, Oriented, Cooperative, No Acute Distress HEENT: Pupils Equal, Pupils Reactive, Mucous Membr. Moist/[place] Neck: Supple Lungs: Clear to Auscultation, Normal Respiratory Effort Cardiovascular: Regular Rate, Regular Rhythm GI/Abdominal Exam: Normal Bowel Sounds, Soft, Non-Tender, Other (Abdominal adiposity with pannus. Improved redness in the left lower abdominal region. ) Extremities: Normal Inspection, Non-Tender, No Pedal Edema, Redness (Almost completely resolved. ) Skin: Warm, Dry, Intact, Rash Neurological: No New Focal Deficit Psy/Mental Status: Alert, Normal Affect, Normal Mood - Problem List & Annotations (1) Hypertension SNOMED Code(s): 55593590 Code(s): I10 - ESSENTIAL (PRIMARY) HYPERTENSION Status: Acute Current Visit: Yes (2) Morbid (severe) obesity due to excess calories SNOMED Code(s): 336621446, 435669277 Code(s): E66.01 - MORBID (SEVERE) OBESITY DUE TO EXCESS CALORIES Status: Acute Current Visit: Yes (3) Abdominal wall cellulitis SNOMED Code(s): 62611982 Code(s): L03.311 - CELLULITIS OF ABDOMINAL WALL Status: Acute Current Visit: No (4) Cellulitis, leg SNOMED Code(s): 090125653 Code(s): L03.119 - CELLULITIS OF UNSPECIFIED PART OF LIMB Status: Acute Current Visit: No Qualifiers: Laterality: unspecified laterality Qualified Code(s): L03.119 - Cellulitis of unspecified part of limb (5) GERD (gastroesophageal reflux disease) SNOMED Code(s): 010952354 Code(s): K21.9 - GASTRO-ESOPHAGEAL REFLUX DISEASE WITHOUT ESOPHAGITIS Status: Acute Current Visit: No Qualifiers: Esophagitis presence: esophagitis presence not specified Qualified Code(s) : K21.9 - Gastro-esophageal reflux disease without esophagitis - Problem List Review Problem List Initiated/Reviewed/Updated: Yes - My Orders Last 24 Hours: My Active Orders 06/11/19 10:15 Pharmacy to Dose - Vancomycin 6 dose .XX ASDIRECTED 06/11/19 21:00 Metoprolol Succinate [Toprol XL] 75 mg PO BEDTIME 06/12/19 06:00 Omeprazole 20 mg PO ACBREAKFAST 06/12/19 10:30 Sulfamethoxazole/Trimethoprim [Septra DS] 1 tab PO BID 06/12/19 12:00 cephALEXin [Keflex] 500 mg PO Q6HR - Plan Plan:: #Sepsis due to cellulitis: Improved #Cellulitis of abdominal wall: Improved. #Cellulitis of bilateral lower legs: Almost completely resolved. - Did not respond to Clindamycin, received one dose IV and oral - Lower leg cellulitis started after initiation of clindamycin - No abscess or drainage. - Follow up on blood cultures - Discontinue Vancomycin and ertapenem - Start bactrim and keflex; reported blurry vision with keflex about 20 years ago. Has tolerated amoxicillin since. - If blurry vision recurs with Keflex, will re-assess and also send for allergy testing. #HTN: - Continue home medications. #Morbid obesity: - BMI of 62 - Weight loss counseling provided. #GERD: - Continue prilosec DVT PPx: Lovenox GI PPx: Prilosec Code status: Full
[2019-06-12] MEDS: Sulfamethoxazole/Trimethoprim 800-160 MG Tab PO SCH ×2 (10:59→21:27)
[2019-06-12] MEDS: Cephalexin 500 MG Cap PO SCH ×3 (12:14→23:27)
[2019-06-12] MEDS: Metoprolol Succinate 25 MG Tab.ER PO SCH (21:26)
[2019-06-13] MEDS: Omeprazole 20 MG Cap.CR PO SCH (05:40)
[2019-06-13] MEDS: Cephalexin 500 MG Cap PO SCH (05:40)
[2019-06-13 08:07] VITALS: BP 105/74
[2019-06-13] MEDS: Sulfamethoxazole/Trimethoprim 800-160 MG Tab PO SCH (09:05)
[2019-06-13] MEDS: Enoxaparin 40 MG/0.4 ML Syringe SUBCUT SCH (09:05)
--- NOTE | 2019-06-13 10:10 | PCM.DCSUM1 ---
Discharge Summary - Hospital Course Free Text/Narrative:: janett Cortez is a 43 y.o male with medical history significant for morbid obesity, HTN, BRI, impaired fasting glucose, and GERD who was admitted for abdominal wall and bilateral lower extremity cellulitis. He was started on vancomycin and meropenem with significant improvement of the cellulitis. He was transitioned to Bactrim and Keflex. Lower extremity redness completely resolved. Abdominal wall redness improved significantly. He did not have recurrence of blurry vision that he had reported with cephalexin. He was discharged home to continue Keflex and Bactrim and to follow up with PCP and casing tester. HPI Initial Comments: Mr. Cortez is a 43 y.o male with medical history significant for morbid obesity, HTN, BRI, impaired fasting glucose, and GERD who presented to the ED with complaints of persistent redness of the lower abdominal wall and new lesions on the back of his legs bilaterally Patient reports that abdominal wall lesion started night and progressively spread so he came to the ED Wednesday into Wednesday. He was seen in the [facility] and given IV antibiotic and sent home with oral clindamycin. He reports that he noted similar rash/redness on his calves last night and so decided to come to the ED. He reports nausea, headache, and fever last night. He denies emesis. Reports that his nausea is improved with Reglan. Had not taken any antibiotic prior to coming to the ED on Wednesday night. States he had dysuria and hematuria about 2 weeks ago. Hematuria has since resolve and dysuria is mild. He denies chest pain, shortness of breath, diarrhea , constipation, melena, hematochezia, or any new symptoms Drinks one beer about once a month. Denies tobacco or illicit drug use. Diagnosis: Stroke: No - Discharge Data Discharge Date: 06/13/19 Discharge Disposition: Home, Self-Care 01 Condition: Stable - Discharge Diagnosis/Problem(s) (1) Hypertension SNOMED Code(s): 08214686 ICD Code: I10 - ESSENTIAL (PRIMARY) HYPERTENSION Status: Acute Current Visit: Yes (2) Morbid (severe) obesity due to excess calories SNOMED Code(s): 660739263, 979194835 ICD Code: E66.01 - MORBID (SEVERE) OBESITY DUE TO EXCESS CALORIES Status: Acute Current Visit: Yes (3) Abdominal wall cellulitis SNOMED Code(s): 16522100 ICD Code: L03.311 - CELLULITIS OF ABDOMINAL WALL Status: Acute Current Visit: No (4) Cellulitis, leg SNOMED Code(s): 621547694 ICD Code: L03.119 - CELLULITIS OF UNSPECIFIED PART OF LIMB Status: Acute Current Visit: No Qualifiers: Laterality: unspecified laterality Qualified Code(s): L03.119 - Cellulitis of unspecified part of limb (5) GERD (gastroesophageal reflux disease) SNOMED Code(s): 740534183 ICD Code: K21.9 - GASTRO-ESOPHAGEAL REFLUX DISEASE WITHOUT ESOPHAGITIS Status: Acute Current Visit: No Qualifiers: Esophagitis presence: esophagitis presence not specified Qualified Code(s) : K21.9 - Gastro-esophageal reflux disease without esophagitis - Patient Summary/Data Consults: Consultations 06/12/19 10:47 Consult to Human Resources Partner [CONS] Routine - Discharge Plan *PRESCRIPTION DRUG MONITORING PROGRAM REVIEWED*: Not Applicable *COPY OF PRESCRIPTION DRUG MONITORING REPORT IN PATIENT CHACHA: Not Applicable Prescriptions/Med Rec: cephALEXin [Keflex] 500 mg PO Q6HR #32 cap Sulfamethoxazole/Trimethoprim [Septra DS] 1 tab PO BID #16 tablet Home Medications: Home Meds Omeprazole [Prilosec] 20 mg PO DAILY 07/30/14 [History] Ibuprofen 800 mg PO ASDIRECTED PRN 08/07/14 [History] Metoprolol Succinate [Toprol XL] 75 mg PO DAILY 10/19/16 [History] Sulfamethoxazole/Trimethoprim [Septra DS] 1 tab PO BID #16 tablet 06/13/19 [Rx] cephALEXin [Keflex] 500 mg PO Q6HR #32 cap 06/13/19 [Rx] Patient Handouts: Cellulitis, Adult, [id number] Referrals: PCP,Unobtain [Ordering Only Provider] - - Discharge Summary/Plan Comment DC Time >30 min.: Yes - General Info Date of Service: 06/13/19 Admission Dx/Problem (Free Text: Admission Diagnosis/Problem Admission Diagnosis/Problem Cellulitis Subjective Update: No acute events overnight. Reports that he is doing well. Denies fevers, chills , chest pain, shortness of breath, worsening or new redness on skin, abd pain, n /v/d/c, dysuria, hematuria, or any new symptoms. No acute complaints. - Patient Data Vitals - Most Recent: Last Vital Signs Temp 97.6 F 06/13/19 08:00 Pulse 68 06/13/19 08:00 Resp 18 06/13/19 08:00 BP 105/74 06/13/19 08:00 Pulse Ox 97 06/13/19 08:00 Weight - Most Recent: 384 lb 9.6 oz I&O - Last 24 hours: Intake & Output 06/12/19 06/13/19 06/13/19 22:59 06:59 14:59 Intake Total 1010 200 Output Total 1200 500 Balance -190 -300 SANTANA Results - Last 24 hrs: Microbiology 06/11/19 03:50 Aerobic Blood Culture - Preliminary Blood NO GROWTH AFTER 2 DAYS Anaerobic Blood Culture - Preliminary NO GROWTH AFTER 2 DAYS Med Orders - Current: Current Medications Acetaminophen (Tylenol) 650 mg PO Q6H PRN PRN Reason: Pain (Mild 1-3)/fever Bisacodyl (Dulcolax) 5 mg PO DAILY PRN PRN Reason: Constipation Cephalexin (Keflex) 500 mg PO Q6HR [facility] Stop: 06/18/19 12:01 Last Admin: 06/13/19 05:40 Dose: 500 mg Dextrose/Water (Dextrose 50% In Water) 25 ml IVPUSH ASDIRECTED PRN PRN Reason: Hypoglycemia Docusate Sodium (Colace) 100 mg PO BID PRN PRN Reason: Constipation Enoxaparin Sodium (Lovenox) 40 mg SUBCUT DAILY [facility] Last Admin: 06/13/19 09:05 Dose: 40 mg Glucagon (Glucagen) 1 mg IM ONETIME PRN PRN Reason: Hypoglycemia Ibuprofen (Motrin) 800 mg PO Q6H PRN PRN Reason: Pain (moderate 4-6) Last Admin: 06/12/19 19:22 Dose: 800 mg Magnesium Hydroxide (Milk Of Magnesia) 30 ml PO Q12H PRN PRN Reason: Constipation Metoprolol Succinate (Toprol Xl) 75 mg PO BEDTIME [facility] Last Admin: 06/12/19 21:26 Dose: 75 mg Omeprazole (Omeprazole) 20 mg PO ACBREAKFAST [facility] Last Admin: 06/13/19 05:40 Dose: 20 mg Ondansetron HCl (Zofran Odt) 8 mg PO Q4H PRN PRN Reason: nausea, able to take PO Polyethylene Glycol (Miralax) 17 gm PO DAILY PRN PRN Reason: Constipation Promethazine HCl (Phenergan) 25 mg PO Q6H PRN PRN Reason: nausea, able to take PO Senna/Docusate Sodium (Senna Plus) 1 tab PO BEDTIME PRN PRN Reason: Constipation Trimethoprim/Sulfamethoxazole (Septra Ds) 1 tab PO BID [facility] Stop: 06/18/19 10:31 Last Admin: 06/13/19 09:05 Dose: 1 tab Discontinued Medications Clindamycin Phosphate 900 mg/ (Sodium Chloride) 106 mls @ 200 mls/hr IV ONETIME ONE Stop: 06/11/19 03:58 Last Admin: 06/11/19 04:02 Dose: 200 mls/hr Vancomycin HCl 1.75 gm/ Sodium (Chloride) 500 mls @ 334 mls/hr IV ONETIME ONE Stop: 06/11/19 06:32 Last Admin: 06/11/19 05:56 Dose: 334 mls/hr Ertapenem 1 gm/ Sodium (Chloride) 50 mls @ 100 mls/hr IV ONETIME ONE Stop: 06/11/19 06:11 Last Admin: 06/11/19 07:39 Dose: 100 mls/hr Meropenem/Sodium Chloride 1 gm (/ Premix) 50 mls @ 100 mls/hr IV Q8HR [facility] Last Infusion: 06/12/19 06:08 Dose: Infused Vancomycin HCl 1,500 mg/ (Sodium Chloride) 500 mls @ 333.333 mls/hr IV Q8H [facility] Last Infusion: 06/12/19 08:00 Dose: Infused Ibuprofen (Motrin) 800 mg PO ONETIME ONE Stop: 06/11/19 05:25 Last Admin: 06/11/19 05:37 Dose: 800 mg Metoclopramide HCl (Reglan) 10 mg IVPUSH ONETIME ONE Stop: 06/11/19 04:24 Last Admin: 06/11/19 04:31 Dose: 10 mg Metoprolol Succinate (Toprol Xl) 75 mg PO DAILY [facility] Last Admin: 06/11/19 08:41 Dose: Not Given Omeprazole (Omeprazole) 20 mg PO DAILY [facility] Last Admin: 06/12/19 06:02 Dose: 20 mg Vancomycin HCl (Pharmacy To Dose - Vancomycin) 6 dose .XX ASDIRECTED [facility] Stop: 06/16/19 23:59 - Exam General: Reports: Alert, Oriented, Cooperative, No Acute Distress HEENT: Reports: Pupils Equal, Mucous Membr. Moist/[place] Neck: Reports: Supple Lungs: Reports: Clear to Auscultation, Normal Respiratory Effort Cardiovascular: Reports: Regular Rate, Regular Rhythm, No Murmurs GI/Abdominal Exam: Normal Bowel Sounds, Soft, Non-Tender, No Distention, Other ( Lower abdominal wall redness significantly improved compared to presentation. ) Extremities: Normal Inspection, Non-Tender, No Pedal Edema Skin: Reports: Warm, Dry, Intact, Rash (Lower abdominal wall. ) Neurological: Reports: No New Focal Deficit Psy/Mental Status: Reports: Alert, Normal Affect, Normal Mood
== END 2019-06-13 11:00 | disposition home or self-care (01) | DRG 720 ==
LOC: DL.ED 03:13 → DL.MS 05:07
PROVIDERS: ADMIT Internal Medicine; ATTEND Internal Medicine
DX: A41.9 Sepsis, unspecified organism (principal); L03.311 Cellulitis of abdominal wall; L03.116 Cellulitis of left lower limb; L03.115 Cellulitis of right lower limb; E66.01 Morbid (severe) obesity due to excess calories; I10 Essential (primary) hypertension; G47.33 Obstructive sleep apnea (adult) (pediatric); K21.9 Gastro-esophageal reflux disease without esophagitis; H54.7 Unspecified visual loss; Z87.442 Personal history of urinary calculi; Z90.49 Acquired absence of other specified parts of digestive tract; Z90.89 Acquired absence of other organs; Z79.899 Other long term (current) drug therapy; Z88.1 Allergy status to other antibiotic agents; Z68.44 Body mass index [BMI] 60.0-69.9, adult
CPT/HCPCS: 36415; 80053; 83605; 85025; 85027; 87040; 96365; 96375; 99283-25; A9270-GY; J1335; J1650; J2185; J2765; J3370; J3490; J7040; J7050

== ENCOUNTER 2021-12-30 13:39 | Emergency (ER) | payer BC, OTHER ==
[2021-12-30 13:53] VITALS: BP 136/89; PULSE 115
[2021-12-30 14:35] LABS: ANION GAP 13.5 mEq/L (7-13); CHLORIDE,CL 105 mmol/L (98-107); ESTIMATED GFR > 60; SODIUM,NA 138 mmol/L (136-145)
== END 2021-12-30 15:21 | disposition home or self-care (01) ==
LOC: DL.ED 13:39
DX: S76.911A Strain of unspecified muscles, fascia and tendons at thigh level, right thigh, initial encounter (principal); I10 Essential (primary) hypertension; E66.9 Obesity, unspecified; Z68.44 Body mass index [BMI] 60.0-69.9, adult; Z88.1 Allergy status to other antibiotic agents
CPT/HCPCS: 36415; 80053; 85025; 85379; 99282; 99283

== ENCOUNTER 2022-05-12 09:34 | Emergency (ER) | payer OTHER ==
[2022-05-12 10:40] LABS: ANION GAP 13.3 mEq/L (7-13)
[2022-05-12 11:06] VITALS: BP 139/71; PULSE 80
== END 2022-05-12 11:00 | disposition home or self-care (01) ==
LOC: DL.ED 09:34
DX: I10 Essential (primary) hypertension (principal); E66.9 Obesity, unspecified; Z68.44 Body mass index [BMI] 60.0-69.9, adult; Z88.1 Allergy status to other antibiotic agents; Z90.49 Acquired absence of other specified parts of digestive tract
CPT/HCPCS: 36415; 80053; 85025; 99283

== ENCOUNTER 2024-08-05 06:42 | Emergency (ER) | payer OTHER ==
[2024-08-05] MEDS ORDERED: Naloxone 2 MG/2 ML Syringe IVPUSH PRN ×2 (06:58→08:27)
[2024-08-05] MEDS ORDERED: Sodium Chloride 0.9% 10 ML Syringe FLUSH PRN (06:58)
[2024-08-05 07:10] LABS: BASOPHILS PERCENT AUTO 0.5 % (0.0-1.0); EOSINOPHILS PERCENT AUTO 2.8 % (1.0-3.0); HEMATOCRIT 45.6 % (40.0-54.0); LYMPHOCYTES PERCENT AUTO 18.1 % (20.5-50.1); MEAN CORPUSCULAR HEMOGLOBIN 28.5 pg (27.0-34.0); MEAN CORPUSCULAR HGB CONC 32.9 g/dL (33.0-35.0); MEAN CORPUSCULAR VOLUME 86.7 fL (80-100); MONOCYTES PERCENT AUTO 8.7 % (2-8); NEUTROPHILS PERCENT AUTO 69.9 % (42.2-75.2); PLATELET COUNT,PLT 262 10^3/uL (150-450); RED BLOOD CELL COUNT 5.26 10^6/uL (4.6-6.2); WHITE BLOOD CELL COUNT,WBC 8.3 10^3/uL (5.0-10.0)
[2024-08-05] MEDS: fentaNYL 100 MCG/2 ML SDV IVPUSH ONE ×2 (07:15→08:33)
[2024-08-05 07:30] LABS: A/G RATIO 0.9; ALANINE AMINOTRANSFERASE,ALT 24 U/L (16-63); ALBUMIN 3.5 g/dL (3.4-5.0); ALKALINE PHOSPHATASE 92 U/L (46-116); ANION GAP 13.3 mEq/L (7-13); ASPARTATE AMNIOTRANSFERASE,AST 12 U/L (15-37); BILIRUBIN TOTAL 0.5 mg/dL (0.2-1.0); BLOOD UREA NITROGEN,BUN 22 mg/dL (7-18); BUN/CREATININE RATIO 19.8 (No establ ref range); CALCIUM 9.1 mg/dL (8.5-10.1); CARBON DIOXIDE,CO2 27 mmol/L (21-32); CHLORIDE,CL 105 mmol/L (98-107); CREATININE 1.11 mg/dL (0.70-1.30); ESTIMATED GFR 81 mL/min (>=60); GLUCOSE RANDOM 133 mg/dL (70-99); POTASSIUM,K 4.3 mmol/L (3.5-5.1); PROTEIN TOTAL,TP 7.2 g/dL (6.4-8.2); SODIUM,NA 141 mmol/L (136-145)
[2024-08-05] MEDS: Ondansetron 4 MG/2 ML SDV IVPUSH ONE (07:56)
[2024-08-05] MEDS: Ketorolac 30 MG/ML SDV IVPUSH ONE (07:58)
[2024-08-05] MEDS: diazePAM 5 MG/ML MDV IV ONE ×2 (08:00→08:11)
[2024-08-05] MEDS: Lactated Ringers 1,000 ML IV SCH (08:02)
[2024-08-05] MEDS: Diazepam 5 MG Tab PO ONE (08:12)
[2024-08-05] MEDS: Morphine 2 MG/ML SYRINGE IVPUSH ONE (09:01)
[2024-08-05] MEDS: Diclofenac Sodium 1% Gel 100 GM Tube TOP ONE (09:11)
[2024-08-05 09:38] LABS: APPEARANCE,URINE CLEAR (CLEAR); BILIRUBIN,URINE NEGATIVE (NEGATIVE); COLOR,URINE YELLOW (YELLOW); GLUCOSE,URINE NEGATIVE (NEGATIVE); KETONES,URINE NEGATIVE (NEGATIVE); LEUKOCYTE ESTERASE,URINE NEGATIVE (NEGATIVE); NITRITE,URINE NEGATIVE (NEGATIVE); OCCULT BLOOD,URINE NEGATIVE (NEGATIVE); PH,URINE 5.5 (5.0-9.0); PROTEIN,URINE NEGATIVE (NEGATIVE); UROBILINOGEN,URINE 0.2 mg/dL (0.2-1.0)
[2024-08-05] MEDS: oxyCODONE 5 MG Tab PO ONE (10:12)
[2024-08-05 11:14] VITALS: BP 168/88; PULSE 75
== END 2024-08-05 11:26 | disposition home or self-care (01) ==
LOC: DL.ED 06:42
DX: M62.830 Muscle spasm of back (principal); I10 Essential (primary) hypertension; E66.9 Obesity, unspecified; Z68.44 Body mass index [BMI] 60.0-69.9, adult; Z90.49 Acquired absence of other specified parts of digestive tract; Z88.1 Allergy status to other antibiotic agents
CPT/HCPCS: 36415; 80053; 81003; 83735; 85025; 96361; 96374; 96375; 96376; 99283; A9270; J1885; J2270; J2405; J3010; J3360; J7120

== ENCOUNTER 2024-08-07 05:22 | Emergency (ER) | payer OTHER ==
[2024-08-07 06:04] LABS: BASOPHILS PERCENT AUTO 0.4 % (0.0-1.0); EOSINOPHILS PERCENT AUTO 3.5 % (1.0-3.0); HEMATOCRIT 43.9 % (40.0-54.0); HEMOGLOBIN 14.7 g/dL (14.0-18.0); LYMPHOCYTES PERCENT AUTO 15.8 % (20.5-50.1); MEAN CORPUSCULAR HEMOGLOBIN 28.7 pg (27.0-34.0); MEAN CORPUSCULAR HGB CONC 33.5 g/dL (33.0-35.0); MEAN CORPUSCULAR VOLUME 85.6 fL (80-100); MONOCYTES PERCENT AUTO 10.4 % (2-8); NEUTROPHILS PERCENT AUTO 69.9 % (42.2-75.2); PLATELET COUNT,PLT 236 10^3/uL (150-450); RED BLOOD CELL COUNT 5.13 10^6/uL (4.6-6.2); WHITE BLOOD CELL COUNT,WBC 7.1 10^3/uL (5.0-10.0)
[2024-08-07] MEDS: Iopamidol 612 MG/ML 100 ML Bottle IVPUSH ONE (06:21)
[2024-08-07 06:23] LABS: A/G RATIO 0.94; ALANINE AMINOTRANSFERASE,ALT 25 U/L (16-63); ALBUMIN 3.2 g/dL (3.4-5.0); ALKALINE PHOSPHATASE 89 U/L (46-116); ASPARTATE AMNIOTRANSFERASE,AST 13 U/L (15-37); BILIRUBIN TOTAL 0.7 mg/dL (0.2-1.0); BLOOD UREA NITROGEN,BUN 13 mg/dL (7-18); CALCIUM 8.9 mg/dL (8.5-10.1); CARBON DIOXIDE,CO2 28 mmol/L (21-32); CHLORIDE,CL 102 mmol/L (98-107); CREATININE 1.08 mg/dL (0.70-1.30); ESTIMATED GFR 84 mL/min (>=60); GLUCOSE RANDOM 136 mg/dL (70-99); LIPASE 42 U/L (16-77); MAGNESIUM 1.7 mg/dL (1.8-2.4); PROTEIN TOTAL,TP 6.6 g/dL (6.4-8.2); SODIUM,NA 133 mmol/L (136-145)
[2024-08-07] MEDS ORDERED: Naloxone 2 MG/2 ML Syringe IVPUSH PRN (06:51)
[2024-08-07] MEDS: Sodium Chloride 0.9% 1,000 ML IV ONE (07:12)
[2024-08-07] MEDS: Morphine 2 MG/ML SYRINGE IVPUSH ONE (07:12)
[2024-08-07 07:33] LABS: APPEARANCE,URINE CLEAR (CLEAR); BILIRUBIN,URINE NEGATIVE (NEGATIVE); COLOR,URINE DARK YELLOW (YELLOW); GLUCOSE,URINE 100 (NEGATIVE); KETONES,URINE NEGATIVE (NEGATIVE); LEUKOCYTE ESTERASE,URINE NEGATIVE (NEGATIVE); NITRITE,URINE POSITIVE (NEGATIVE); OCCULT BLOOD,URINE NEGATIVE (NEGATIVE); PH,URINE 5.5 (5.0-9.0); PROTEIN,URINE TRACE (NEGATIVE)
[2024-08-07 07:50] LABS: BACTERIA,URINE FEW /HPF (0-FEW/HPF); EPITHELIAL CELLS,URINE RARE /HPF (NOT SEEN); RBC,URINE 0-5 /HPF (0-5)
[2024-08-07] MEDS: Nitrofurantoin Monohydrate/Macrocrystalline 100 MG Cap PO ONE (08:09)
[2024-08-07] MEDS: Sodium Chloride 0.9% 10 ML Syringe FLUSH PRN (08:11)
[2024-08-07 08:37] VITALS: BP 147/90; PULSE 87
== END 2024-08-07 08:44 | disposition home or self-care (01) ==
LOC: DL.ED 05:22
DX: N39.0 Urinary tract infection, site not specified (principal); I10 Essential (primary) hypertension; E66.9 Obesity, unspecified; Z90.49 Acquired absence of other specified parts of digestive tract; Z88.1 Allergy status to other antibiotic agents
CPT/HCPCS: 36415; 71260; 74177; 80053; 81001; 83605; 83690; 83735; 84484; 85025; 87086; 93005; 96365; 96375; 99284; A9270; J2270; J3475; J7030; Q9967; 93010; J3490